=== PATIENT | female | born 1960 | race Caucasian/White ===

== ENCOUNTER 2018-04-19 18:59 | Inpatient (IN) ==
--- NOTE | 2018-04-19 19:36 | Emergency Department Note ---
Disposition Clinical Impression: Dialysis complication Qualifiers: Encounter type: initial encounter Qualified Code(s): T82.9XXA - Unspecified complication of cardiac and vascular prosthetic device, implant and graft, initial encounter Disposition: Admitted As Inpatient Condition: Undetermined Time of Disposition: 21:37 General Adult HPI - General Chief complaint: ED Shortness of Breath/Dyspnea Stated complaint: "retaining fluid, PD dialysis not working" Time Seen by Provider: 04/19/18 19:28 Source: patient Mode of arrival: ambulatory Limitations: no limitations Nursing Notes Reviewed: Yes Vital Signs Reviewed: Yes - History of Present Illness HPI Narrative: 57-year-old female with peritoneal dialysis arrives to the emergency department with inability to have her peritoneal dialysis work. The patient states is been ongoing over the course of the past 5 days. The patient was seen in the office by Dr. Vaughn, her an employee sponsor or advocate and, who recommended she be to the emergency department admitted to the hospital for the next few days. The patient admits to a large amount of abdominal distention and swelling in bilateral upper and lower extremities. She denies any shortness of breath. The patient denies any abdominal pain, fevers, chills. The patient is otherwise resting comfortably. The patient has no signs of obvious infection. She is not tachycardic and not hypotensive and afebrile. Patient denies any other complaints at this time. Pain Scale: 6 - Related Data Home Medications Medication Instructions Recorded Confirmed Albuterol Neb [Proventil Neb] 2.5 mg IH Q4H PRN 11/24/17 04/20/18 Albuterol Sulfate [Albuterol 2 puff IH Q4H PRN 11/24/17 04/20/18 Inhaler] Apixaban [Eliquis] 2.5 mg PO BID 11/24/17 04/20/18 Cetirizine HCl 10 mg PO DAILY 11/24/17 04/20/18 Cholecalciferol (D-3) [Vitamin D] 2,000 unit PO DAILY 11/24/17 04/20/18 Cyanocobalamin (Vitamin B-12) 1,000 mcg PO DAILY 11/24/17 04/20/18 [Vitamin B12] Escitalopram [Lexapro] 20 mg PO DAILY 11/24/17 04/20/18 Ferrous Sulfate 325 mg PO DAILY 11/24/17 04/20/18 Furosemide [Lasix] 20 mg PO DAILY 11/24/17 04/20/18 Gabapentin [Neurontin] 600 mg PO BID 11/24/17 04/20/18 Glimepiride [Amaryl] 2 mg PO QAM 11/24/17 04/20/18 Meclizine HCl [Verticalm] 25 mg PO DAILY PRN 11/24/17 04/20/18 Montelukast [Singulair] 10 mg PO DAILY 11/24/17 04/20/18 Nitroglycerin 0.2 mg TD DAILY 11/24/17 04/20/18 Omeprazole [PriLOSEC] 40 mg PO DAILY 11/24/17 04/20/18 Quetiapine Fumarate [Seroquel] 100 mg PO HS 11/24/17 04/20/18 Calcitriol 0.5 mcg PO DAILY 04/20/18 04/20/18 Magnesium Oxide [Magnesium] 400 mg PO BID 04/20/18 04/20/18 Potassium Chloride [Klor-Con 10] 10 meq PO DAILY 04/20/18 04/20/18 Allergies Allergy/AdvReac Type Severity Reaction Status Date / Time naproxen Allergy Gastrointestinal Verified 04/19/18 19:02 Upset Penicillins [PCN] AdvReac Fever Verified 04/19/18 19:02 All systems ED: reviewed and negative except as stated. Constitutional: Denies: fever, chills, weakness ENT ED: Denies: dysphagia Cardiovascular: Denies: chest pain Respiratory: Denies: dyspnea Gastrointestinal: Denies: abdominal pain, nausea, vomiting Genitourinary: Denies: urgency, dysuria Musculoskeletal: Denies: back pain, neck pain Integumentary: Denies: rash Neurological: Denies: headache Past Medical History - Past Medical History Attestation: Yes The following information was validated with the patient. Source: patient, old records reviewed Medical history: Reports: arthritis, asthma, COPD, coronary artery disease, DVT , diabetes, GERD, hyperlipidemia, hypertension, renal disease Surgical history: Reports: no surgical history Psychiatric history: Reports: anxiety, depression - Social History Smoking Status: Current every day smoker Smokeless Tobacco Status: No Alcohol use: Reports: none Drug use: Reports: none Physical Exam - General Limitations: no limitations General appearance: alert, in no apparent distress - Head Head exam: atraumatic, normocephalic, normal inspection - Eye Eye exam: Present: normal appearance, PERRL, EOMI - ENT ENT exam: normal exam, normal oropharynx, mucous membranes moist - Neck Neck exam: Present: normal inspection, full ROM, trachea midline - Chest Chest inspection: Present: normal inspection, symmetric chest wall rise - Respiratory Respiratory exam: Present: normal lung sounds bilaterally - Cardiovascular Cardiovascular exam: Present: regular rate, normal rhythm, normal heart sounds - Abdominal Exam Abdominal exam: Present: soft, distention, other (dialysis catheter in place.). Absent: tenderness, guarding, rebound, rigidity - Extremities Exam Extremities exam: Present: normal inspection, full ROM. Absent: tenderness, pedal edema - Neurological Exam Neurological exam: Present: alert, oriented X3 - Skin Skin exam: Present: warm Course Vital Signs Temperature 98.6 F 04/19/18 19:02 Pulse Rate 75 04/19/18 19:02 Respiratory Rate 28 04/19/18 19:02 Blood Pressure 125/76 04/19/18 19:02 O2 Sat by Pulse Oximetry 93 04/19/18 19:02 Temperature 97.5 F L 04/20/18 16:20 Pulse Rate 74 04/20/18 15:42 Respiratory Rate 18 04/20/18 16:20 Blood Pressure 137/86 04/20/18 17:05 O2 Sat by Pulse Oximetry 91 04/20/18 15:42 Oxygen Delivery Oxygen Delivery Room Air Medical Decision Making - [facility] Narrative Medical decision making narrative: Patient's workup in the emergency department demonstrates no leukocytosis. CT scan images no acute findings. We are not concerned about SBP at this time as the patient is afebrile, without abdominal pain, without leukocytosis. The patient was noted to be hypokalemic so we did administer 40 mEq by mouth potassium. The patient will be admitted to the hospitalist at this time per request of nephrology. Patient made aware and agrees to plan. No further questions or concerns noted at this time. Patient accepted by Dr. Forte. - Lab Data Lab results reviewed: Yes I reviewed the patient's lab results. Result diagrams: 04/20/18 00:34 04/20/18 00:34 Lab Results 04/19/18 04/19/18 04/19/18 Range/Units 19:35 19:35 22:53 WBC 7.8 (4.3-11.1) K/mcL RBC 3.73 L (3.82-4.97) M/mcL Hgb 9.3 L (11.5-15.4) g/dL Hct 29.7 L (35.3-44.9) % MCV 79.6 L (83.0-100.0) fL MCH 24.9 L (28.0-33.3) pg MCHC 31.3 L (31.6-35.5) g/dL RDW 15.9 H (11.5-14.5) % Plt Count 349 (140-400) K/mcL MPV 9.0 L (9.4-12.4) fL Immature Gran % 0.1 (0-4) % Seg Neutrophils % 73.5 % Lymphocytes % 20.9 % Monocytes % 3.7 % Eosinophils % 1.3 % Basophils % 0.5 % Neutrophils # 5.7 (1.6-8.9) K/mcL Lymphocytes # 1.6 (0.6-4.6) K/mcL Monocytes # 0.3 (0.0-1.3) K/mcL Eosinophils # 0.1 (0.0-0.6) K/mcL Basophils # 0.0 (0.0-0.2) K/mcL Sodium 141 (136-145) mEq/L Potassium 2.7 L (3.5-5.1) mEq/L Chloride 103 (98-107) mEq/L Carbon Dioxide 29 (23-29) mEq/L BUN 23 H (6-20) mg/dL Creatinine 3.45 H (0.60-1.20) mg/dL Est GFR ( Amer) 16 L (> 60) Est GFR (Non-Af Amer) 14 L (> 60) BUN/Creatinine Ratio 7 (6-26) Glucose 113 H (70-105) mg/dL POC Glucose 130 H (70-99) mg/dL Calculated Osmolality 296 (280-300) Calcium 8.0 L (8.6-10.3) mg/dL 18 04/20/18 Range/Units 00:34 00:34 WBC 12.2 H D (4.3-11.1) K/mcL RBC 4.01 (3.82-4.97) M/mcL Hgb 9.8 L (11.5-15.4) g/dL Hct 31.8 L (35.3-44.9) % MCV 79.3 L (83.0-100.0) fL MCH 24.4 L (28.0-33.3) pg MCHC 30.8 L (31.6-35.5) g/dL RDW 16.0 H (11.5-14.5) % Plt Count 379 (140-400) K/mcL MPV 9.1 L (9.4-12.4) fL Immature Gran % 0.4 (0-4) % Seg Neutrophils % 91.2 % Lymphocytes % 6.0 % Monocytes % 2.0 % Eosinophils % 0.2 % Basophils % 0.2 % Neutrophils # 11.1 H (1.6-8.9) K/mcL Lymphocytes # 0.7 (0.6-4.6) K/mcL Monocytes # 0.2 (0.0-1.3) K/mcL Eosinophils # 0.0 (0.0-0.6) K/mcL Basophils # 0.0 (0.0-0.2) K/mcL Sodium 141 (136-145) mEq/L Potassium 3.0 L (3.5-5.1) mEq/L Chloride 102 (98-107) mEq/L Carbon Dioxide 28 (23-29) mEq/L BUN 25 H (6-20) mg/dL Creatinine 3.43 H (0.60-1.20) mg/dL Est GFR ( Amer) 17 L (> 60) Est GFR (Non-Af Amer) 14 L (> 60) BUN/Creatinine Ratio 7 (6-26) Glucose 136 H (70-105) mg/dL POC Glucose (70-99) mg/dL Calculated Osmolality 298 (280-300) Calcium 8.1 L (8.6-10.3) mg/dL - Radiology Data Radiology results reviewed: Yes I reviewed the patient's radiology results. Abdomen/Pelvis CT 04/19/18 19:40 IMPRESSION: 1. Peritoneal dialysis catheter in place within the anterior lower abdomen. There is a small amount of intra-abdominal and pelvic ascites, which is expected with peritoneal dialysis. No organized fluid collections are identified within the limits of this unenhanced study. 2. No acute process in the abdomen or pelvis. 3. Trace pleural fluid at the lung bases. D/ / 04/19/2018 21:11:31 Ellen Baig / ember Interpreting Provider: Ellen Baig - EKG Data EKG #1 EKG attestation: Yes I reviewed and interpreted this EKG. EKG results narrative: Heart rate 72 beats for minute. No ST elevation or ST depression noted. No acute changes noted.
[2018-04-19 19:59] LABS: Basophils % 0.5 %; Eosinophils # 0.1 K/mcL (0.0-0.6); Eosinophils % 1.3 %; Hematocrit 29.7 % (35.3-44.9); Hemoglobin 9.3 g/dL (11.5-15.4); Immature Granulocytes % 0.1 % (0-4); Lymphocytes # 1.6 K/mcL (0.6-4.6); Lymphocytes % 20.9 %; Mean Corpuscular HGB Conc 31.3 g/dL (31.6-35.5); Mean Corpuscular Hemoglobin 24.9 pg (28.0-33.3); Mean Corpuscular Volume 79.6 fL (83.0-100.0); Monocytes # 0.3 K/mcL (0.0-1.3); Monocytes % 3.7 %; Neutrophils # 5.7 K/mcL (1.6-8.9); Platelet Count 349 K/mcL (140-400); Red Blood Count 3.73 M/mcL (3.82-4.97); Red Cell Distribution Width 15.9 % (11.5-14.5); Segmented Neutrophils % 73.5 %
--- NOTE | 2018-04-19 20:13 | Emergency Department Note ---
Disposition Clinical Impression: Dialysis complication Disposition: Admitted As Inpatient Condition: Undetermined General Adult HPI - General Chief complaint: ED Shortness of Breath/Dyspnea Stated complaint: "retaining fluid, PD dialysis not working" Time Seen by Provider: 04/19/18 19:28 Source: patient Mode of arrival: ambulatory Limitations: no limitations - History of Present Illness Pain Scale: 7 - Related Data Home Medications Medication Instructions Recorded Confirmed Albuterol Neb [Proventil Neb] 2.5 mg IH Q4H PRN 11/24/17 11/24/17 Albuterol Sulfate [Albuterol 2 puff IH Q4H PRN 11/24/17 11/24/17 Inhaler] Apixaban [Eliquis] 2.5 mg PO BID 11/24/17 11/24/17 Cetirizine HCl 10 mg PO DAILY 11/24/17 11/24/17 Cholecalciferol (D-3) [Vitamin D] 2,000 unit PO DAILY 11/24/17 11/24/17 Cyanocobalamin (Vitamin B-12) 1,000 mcg PO DAILY 11/24/17 11/24/17 [Vitamin B12] Escitalopram [Lexapro] 20 mg PO DAILY 11/24/17 11/24/17 Ferrous Sulfate 325 mg PO DAILY 11/24/17 11/24/17 Furosemide [Lasix] 20 mg PO DAILY 11/24/17 11/24/17 Gabapentin [Neurontin] 600 mg PO BID 11/24/17 11/24/17 Glimepiride [Amaryl] 2 mg PO QAM 11/24/17 11/24/17 Meclizine HCl [Verticalm] 25 mg PO DAILY PRN 11/24/17 11/24/17 Montelukast [Singulair] 10 mg PO DAILY 11/24/17 11/24/17 Nitroglycerin 0.2 mg TD DAILY 11/24/17 11/24/17 Omeprazole [PriLOSEC] 40 mg PO DAILY 11/24/17 11/24/17 Potassium Chloride [K-Tab ER] 20 meq PO DAILY 11/24/17 11/24/17 Quetiapine Fumarate [Seroquel] 100 mg PO HS 11/24/17 11/24/17 Previous Rx's Medication Instructions Recorded OxyCODONE/APAP 5/325 [Percocet 1 each PO Q6HR PRN 7 Days #7 tablet 11/24/17 5/325 MG] Allergies Allergy/AdvReac Type Severity Reaction Status Date / Time naproxen Allergy Gastrointestinal Verified 04/19/18 19:02 Upset Penicillins [PCN] AdvReac Fever Verified 04/19/18 19:02 Constitutional: Denies: fever, chills, weakness ENT ED: Denies: dysphagia Cardiovascular: Denies: chest pain Respiratory: Denies: dyspnea Gastrointestinal: Denies: abdominal pain, nausea, vomiting Genitourinary: Denies: urgency, dysuria Musculoskeletal: Denies: back pain, neck pain Integumentary: Denies: rash Neurological: Denies: headache Past Medical History - Past Medical History Medical history: Reports: arthritis, asthma, COPD, coronary artery disease, DVT , diabetes, GERD, hyperlipidemia, hypertension, renal disease Surgical history: Reports: no surgical history Psychiatric history: Reports: anxiety, depression - Social History Smoking Status: Current every day smoker Smokeless Tobacco Status: No Alcohol use: Reports: none Drug use: Reports: none Physical Exam - General Limitations: no limitations General appearance: alert, in no apparent distress Course Vital Signs Temperature 98.6 F 04/19/18 19:02 Pulse Rate 75 04/19/18 19:02 Respiratory Rate 28 04/19/18 19:02 Blood Pressure 125/76 04/19/18 19:02 O2 Sat by Pulse Oximetry 93 04/19/18 19:02 Temperature 98.6 F 04/19/18 19:12 Pulse Rate 72 04/19/18 19:41 Respiratory Rate 12 04/19/18 19:41 Blood Pressure 105/59 04/19/18 19:41 O2 Sat by Pulse Oximetry 93 04/19/18 19:12 Oxygen Delivery Oxygen Delivery Room Air Medical Decision Making - Lab Data Result diagrams: 04/19/18 19:35 04/19/18 19:35 Lab Results 04/19/18 04/19/18 Range/Units 19:35 19:35 WBC 7.8 (4.3-11.1) K/mcL RBC 3.73 L (3.82-4.97) M/mcL Hgb 9.3 L (11.5-15.4) g/dL Hct 29.7 L (35.3-44.9) % MCV 79.6 L (83.0-100.0) fL MCH 24.9 L (28.0-33.3) pg MCHC 31.3 L (31.6-35.5) g/dL RDW 15.9 H (11.5-14.5) % Plt Count 349 (140-400) K/mcL MPV 9.0 L (9.4-12.4) fL Immature Gran % 0.1 (0-4) % Seg Neutrophils % 73.5 % Lymphocytes % 20.9 % Monocytes % 3.7 % Eosinophils % 1.3 % Basophils % 0.5 % Neutrophils # 5.7 (1.6-8.9) K/mcL Lymphocytes # 1.6 (0.6-4.6) K/mcL Monocytes # 0.3 (0.0-1.3) K/mcL Eosinophils # 0.1 (0.0-0.6) K/mcL Basophils # 0.0 (0.0-0.2) K/mcL Sodium 141 (136-145) mEq/L Potassium 2.7 L (3.5-5.1) mEq/L Chloride 103 (98-107) mEq/L Carbon Dioxide 29 (23-29) mEq/L BUN 23 H (6-20) mg/dL Creatinine 3.45 H (0.60-1.20) mg/dL Est GFR ( Amer) 16 L (> 60) Est GFR (Non-Af Amer) 14 L (> 60) BUN/Creatinine Ratio 7 (6-26) Glucose 113 H (70-105) mg/dL Calculated Osmolality 296 (280-300) Calcium 8.0 L (8.6-10.3) mg/dL Attestation Statement - Attestation Attestation: I examined this patient and my medical decision-making was reviewed with the Resident Physician. I agree with the documented findings, disposition and treatment plan as described except to the extent set forth below. Patient presents to the ED with a chief complaint of trouble with her dialysis catheter. Patient states she has not had a full dialysis since last Monday. Her peritoneal dialysis catheter will not flush or draw. On examination she is in no acute distress with stable vitals. Plan. Basic labs and imaging. Patient is mildly hypokalemic. Patient will be admitted for further troubleshooting of her peritoneal catheter.
[2018-04-19 20:15] LABS: Potassium 2.7 mEq/L (3.5-5.1)
[2018-04-19] MEDS ORDERED: *HR* OxyCODONE/APAP 5/325 TABLET PO PRN (22:33)
[2018-04-19] MEDS ORDERED: Albuterol 2.5 MG/3 ML NEBULIZER IH PRN (22:33)
[2018-04-19] MEDS ORDERED: Dextrose Gel 15 GM/37.5 ML TUBE PO PRN ×2 (22:39)
[2018-04-19] MEDS ORDERED: Ipratropium/Albuterol Neb 3 ML IH STA (23:14)
[2018-04-19] MEDS ORDERED: Furosemide 40 MG/4 ML VIAL IVP ONE (23:16)
[2018-04-19] MEDS ORDERED: Ipratropium/Albuterol Neb 3 ML ONE (23:21)
--- NOTE | 2018-04-19 23:27 | Internal Med History&Physical ---
Date of Encounter: 04/20/18 Time of Encounter: 23:27 Internal Medicine - H&P: HPI Chief complaint: nonfunctional dialysis access Admitted From: Home Plans for Post Hospital Care: Home History of present illness: Ms. 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 She presents today on referral from the nephrology clinic were she went with complaints of a non-functional peritoneal access for the past 4-5 days and has been unable to undergo appropriate renal replacement therapy. With this she has been accumulating more fluid, now complaining of increasing abdominal distension and shortness of breath. On arrival to the ER, she was clinically and hemodynamically stable, noted to have a serum potassium of 2.7 and was given 40mEq supplementation. She is admitted for observation pending re-evaluation by nephrology to obtain alternate access. On my assessment upon arrival to her room, she was notably uncomfortable due to her abdominal distension and shortness of breath. She was unable to lay supine. She had audible wheezes and an oral temperature was checked in front of me which was 103F; repeat was 101F. She denied abdominal pain however. She admits to still making urine but denies dysuria. Past Med Surg Social Fam HX - Past Medical History Medical history: arthritis, asthma, COPD, coronary artery disease, DVT, diabetes , GERD, hyperlipidemia, hypertension, renal disease Additional medical history: sleep apnea, Psychiatric history: anxiety, depression - Past Surgical History Surgical History: no surgical history Additional surgical history: Dialysis Catheter - Social History Smoking Status: Current every day smoker Smokeless Tobacco Status: No Alcohol use: none Drug use: none Internal Medicine - H&P: Meds Albuterol Neb [Proventil Neb] 2.5 mg IH Q4H PRN 11/24/17 [History] Albuterol Sulfate [Albuterol Inhaler] 2 puff IH Q4H PRN 11/24/17 [History] Apixaban [Eliquis] 2.5 mg PO BID 11/24/17 [History] Cetirizine HCl 10 mg PO DAILY 11/24/17 [History] Cholecalciferol (D-3) [Vitamin D] 2,000 unit PO DAILY 11/24/17 [History] Cyanocobalamin (Vitamin B-12) [Vitamin B12] 1,000 mcg PO DAILY 11/24/17 [History ] Escitalopram [Lexapro] 20 mg PO DAILY 11/24/17 [History] Ferrous Sulfate 325 mg PO DAILY 11/24/17 [History] Furosemide [Lasix] 20 mg PO DAILY 11/24/17 [History] Gabapentin [Neurontin] 600 mg PO BID 11/24/17 [History] Glimepiride [Amaryl] 2 mg PO QAM 11/24/17 [History] Meclizine HCl [Verticalm] 25 mg PO DAILY PRN 11/24/17 [History] Montelukast [Singulair] 10 mg PO DAILY 11/24/17 [History] Nitroglycerin 0.2 mg TD DAILY 11/24/17 [History] Omeprazole [PriLOSEC] 40 mg PO DAILY 11/24/17 [History] OxyCODONE/APAP 5/325 [Percocet 5/325 MG] 1 each PO Q6HR PRN 7 Days #7 tablet [Rx] Potassium Chloride [K-Tab ER] 20 meq PO DAILY 11/24/17 [History] Quetiapine Fumarate [Seroquel] 100 mg PO HS 11/24/17 [History] 3 Allergy/AdvReac Type Severity Reaction Status Date / Time naproxen Allergy Gastrointestinal Verified 04/19/18 19:02 Upset Penicillins [PCN] AdvReac Fever Verified 04/19/18 19:02 All Systems PM: A 10-system review of systems was performed and is negative for pertinent findings except as documented above in the HPI. - Constitutional Vitals: Temp Pulse Resp BP Pulse Ox 98.6 F 72 22 125/82 93 04/19/18 19:12 04/19/18 19:41 04/19/18 22:24 04/19/18 22:24 04/19/18 19:12 Exam: Vitals: Reviewed General: Obese white female in standard Clarke's position with notable respiratory discomfort and audible wheezes. Skin: Warm and supple. HEENT: Moist mucous membranes. No conjunctivae pallor. Neck: No lymphadenopathy. No JVD. Chest: Diminished thoracic expansion with diffuse wheezes, rhonchi and rales. Heart: Normal S1 & S2; rhythmic. Abdomen: Very distended but not tense, no focal areas of tenderness or peritoneal reaction elicited. Extremities: 2+ pitting edema of lower extremities. Neurological: Awake, alert and oriented to person, place and time. No focal deficits. Psych: Affect appropriate. Internal Med - H&P Results - Labs CBC & Chem 7: 04/19/18 19:35 04/19/18 19:35 - Assessment and plan (1) Fever Current Visit: Yes Status: Acute Assessment and plan: Unclear etiology and only started upon admission. The presence of large volume ascites as noted on her physical exam with a dysfunctional peritoneal diaylsis catheter should raise the suspicion for secondary bacterial peritonitis. We will obtain 2 sets of blood cultures. 1 dose of 1 g vancomycin for possible catheter-related contaminating gram positive organisms and 2 g of cefepime for gram negative enterics. These doses should be sufficient for the next coming days given her ESRD condition until she is dialyzed. Obtain a UA and chest x-ray. Qualifiers: Fever type: unspecified Qualified Code(s): R50.9 - Fever, unspecified (2) Peritoneal dialysis catheter dysfunction Current Visit: Yes Status: Acute Assessment and plan: Unclear reason for dysfunction. No overt mechanical anomalies noted on CT scan. May be related to a clotted access. Nephrology consultation placed and will be seen for an alternative access in the morning. No emergent indication for dialysis at this time. Qualifiers: Encounter type: initial encounter Qualified Code(s): T85.611A - Breakdown ( mechanical) of intraperitoneal dialysis catheter, initial encounter (3) ESRD (end stage renal disease) on dialysis Current Visit: Yes Status: Chronic Assessment and plan: As above. (4) VTE (venous thromboembolism) Current Visit: Yes Status: Acute Assessment and plan: Will continue apixaban twice daily. (5) CAD (coronary artery disease) Current Visit: Yes Status: Chronic Assessment and plan: Continue nitroglycerin patch daily. Being followed as an outpatient. Qualifiers: Coronary Disease-Associated Artery/Lesion type: ruby artery [place] vs. transplanted heart: ruby heart Associated angina: with stable angina Qualified Code(s): I25.118 - Atherosclerotic heart disease of ruby coronary artery with other forms of angina pectoris (6) DEE (obstructive sleep apnea) Current Visit: Yes Status: Acute Assessment and plan: Start CPAP qhs. (7) COPD (chronic obstructive pulmonary disease) Current Visit: Yes Status: Chronic Assessment and plan: Will place on duonebs q4hrs for acute exacerbation. Supplemental oxygen as needed. Qualifiers: COPD type: COPD with acute exacerbation Qualified Code(s): J44.1 - Chronic obstructive pulmonary disease with (acute) exacerbation (8) Anemia in chronic kidney disease Current Visit: Yes Status: Chronic Assessment and plan: Stable. Place on ferrous sulfate supplementation. Qualifiers: Chronic kidney disease stage: on chronic dialysis Qualified Code(s): N18.6 - End stage renal disease; D63.1 - Anemia in chronic kidney disease; Z99.2 - Dependence on renal dialysis (9) Tobacco dependence Current Visit: Yes Status: Acute Assessment and plan: Continues to smoke despite her comorbidities. 5 minutes were spent counseling. (10) Diabetes Current Visit: Yes Status: Acute Assessment and plan: Will hold oral medications and place on insulin sliding scale for now. Qualifiers: Diabetes mellitus type: type 2 Diabetes mellitus exterminator helper insulin use: without exterminator helper use Diabetes mellitus complication status: with unspecified complications Qualified Code(s): E11.8 - Type 2 diabetes mellitus with unspecified complications (11) Obesity Current Visit: Yes Status: Acute Assessment and plan: Will benefit from capsule filling machine operator consultation. Current weight is likely exacerbated by fluid retention as well and is not her dry weight. Qualifiers: Obesity classification: adult class 3 (BMI >= 40) Serious obesity comorbidity presence: with serious comorbidity Body mass index: BMI 45.0-49.9 Qualified Code(s): E66.01 - Morbid (severe) obesity due to excess calories; Z68.42 - Body mass index (BMI) 45.0-49.9, adult (12) Hypokalemia Current Visit: Yes Status: Acute Assessment and plan: Was given 1 dose of KCL 40mEq. Will recheck in the morning. Unlikely to need more given her ESRD state. (13) Shortness of breath Current Visit: Yes Status: Acute Assessment and plan: Likely multifactorial having a fluid overload state from non-dialysis leading to pulmonary edema, exacerbation of COPD with overlap of DEE. -Will administer 1 dose of furosemide 40mg IVP now and continue BID to reduce her fluid until she is able to undergo renal replacement therapy. -Albuterol/ipratropium q4hrs x 24hrs. Avoiding steroids for now due to possible infection and to avoid fluid retention. -Close respiratory watch. - Time Spent With Patient Total time spent is greater than 50% in coordination of care (as documented) at patient's floor/unit and/or counseling patient: Greater than 35 minutes
[2018-04-19] MEDS: Ipratropium/Albuterol Neb 3 ML IH SCH (23:55)
[2018-04-20] MEDS ORDERED: Cefepime HCl 2,000 MG in 0.9 % Sodium Chloride Mini Bag 100 ML IVPB ONE (00:21)
[2018-04-20 01:12] LABS: Basophils % 0.2 %; Eosinophils % 0.2 %; Hematocrit 31.8 % (35.3-44.9); Hemoglobin 9.8 g/dL (11.5-15.4); Immature Granulocytes % 0.4 % (0-4); Lymphocytes # 0.7 K/mcL (0.6-4.6); Mean Corpuscular HGB Conc 30.8 g/dL (31.6-35.5); Mean Corpuscular Hemoglobin 24.4 pg (28.0-33.3); Mean Corpuscular Volume 79.3 fL (83.0-100.0); Mean Platelet Volume 9.1 fL (9.4-12.4); Monocytes # 0.2 K/mcL (0.0-1.3); Neutrophils # 11.1 K/mcL (1.6-8.9); Platelet Count 379 K/mcL (140-400); Red Blood Count 4.01 M/mcL (3.82-4.97); Segmented Neutrophils % 91.2 %
[2018-04-20 01:31] LABS: Calcium 8.1 mg/dL (8.6-10.3)
[2018-04-20] MEDS: Ipratropium/Albuterol Neb 3 ML IH SCH ×4 (04:07→16:40)
[2018-04-20 04:32] LABS: INR 1.3; Prothrombin Time 14.1 Seconds (9.4-12.1)
[2018-04-20] MEDS: Insulin LISPRO 300 UNITS/3 ML VIAL SQ SCH ×5 (06:43→18:18)
[2018-04-20] MEDS ORDERED: D5% in Water 1,000 ML IVC PRN (07:29)
[2018-04-20] MEDS ORDERED: Dextrose Gel 15 GM/37.5 ML TUBE PO PRN ×2 (07:29)
[2018-04-20] MEDS ORDERED: *HR* Dextrose 50 % in Water (Syg) 50 ML SYRINGE IVP PRN (07:29)
--- NOTE | 2018-04-20 08:28 | Electrocardiograph Report ---
[place] [id number] Test Date: 2018-04-19 Pat Name: Nallely Ramirez Department: Room: 2A25 Gender: F Candy Dipper Hand: : 1960 Requested By: Misha Forte Order Number: [id number] Reading MD: Sebastien Sen Measurements Intervals [place] Rate: 72 P: 56 MS: 164 QRS: -25 QRSD: 91 T: -52 QT: 527 QTc: 577 Interpretive Statements Sinus rhythm with PVCs Borderline left axis deviation Nonspecific ST-T changes Prolonged QT interval Electronically Signed On 04-20-2018 8:27:09 EDT by Sebastien Sen
--- NOTE | 2018-04-20 08:54 | Internal Med Progress Note ---
Hospitalist Progress Note - Encounter Date of Encounter: 04/20/18 Time of Encounter: 08:40 - Exam Vitals: Temp Pulse Resp BP Pulse Ox 99.7 F H 76 21 100/64 97 04/20/18 07:21 04/20/18 07:21 04/20/18 07:37 04/20/18 07:21 04/20/18 07:37 Exam: Vitals: Reviewed General: Obese white female in standard Clarke's position with notable respiratory discomfort and audible wheezes. Skin: Warm and supple. HEENT: Moist mucous membranes. No conjunctivae pallor. Neck: No lymphadenopathy. No JVD. Chest: Diminished thoracic expansion with diffuse wheezes, rhonchi and rales. Heart: Normal S1 & S2; rhythmic. Abdomen: Very distended but not tense, no focal areas of tenderness or peritoneal reaction elicited. Extremities: 2+ pitting edema of lower extremities. Neurological: Awake, alert and oriented to person, place and time. No focal deficits. Psych: Affect appropriate. - Assessment and Plan (1) Sepsis Current Visit: Yes Status: Acute Assessment and Plan: Sepsis likely secondary to secondary bacterial peritonitis. Patient has mal functioning peritoneal dialysis access, and has fever and leukocytosis. Will broaden antibiotic coverage to cetriaxone and metronidazole. Follow up blood cultures. CT scan shows small amount of intraabdominal ascites with no fluid collections (2) Peritonitis Current Visit: Yes Status: Acute Assessment and Plan: Secondary bacterial peritonitis. See #1 (3) Peritoneal dialysis catheter dysfunction Current Visit: Yes Status: Acute Assessment and Plan: Unclear reason for dysfunction. No overt mechanical anomalies noted on CT scan. May be related to a clotted access. Nephrology consultation placed and will be seen for an alternative access in the morning. No emergent indication for dialysis at this time. (4) ESRD (end stage renal disease) on dialysis Current Visit: Yes Status: Chronic Assessment and Plan: As above. (5) VTE (venous thromboembolism) Current Visit: Yes Status: Acute Assessment and Plan: Will continue apixaban twice daily. (6) CAD (coronary artery disease) Current Visit: Yes Status: Chronic Assessment and Plan: Continue nitroglycerin patch daily. Being followed as an outpatient. (7) DEE (obstructive sleep apnea) Current Visit: Yes Status: Acute Assessment and Plan: Start CPAP qhs. (8) COPD (chronic obstructive pulmonary disease) Current Visit: Yes Status: Chronic Assessment and Plan: Will place on duonebs q4hrs for acute exacerbation. Supplemental oxygen as needed. (9) Anemia in chronic kidney disease Current Visit: Yes Status: Chronic Assessment and Plan: Stable. Place on ferrous sulfate supplementation. (10) Tobacco dependence Current Visit: Yes Status: Acute Assessment and Plan: Continues to smoke despite her comorbidities. 5 minutes were spent counseling. (11) Diabetes Current Visit: Yes Status: Acute Assessment and Plan: Will hold oral medications and place on insulin sliding scale for now. (12) Obesity Current Visit: Yes Status: Acute Assessment and Plan: Will benefit from call center receptionist consultation. Current weight is likely exacerbated by fluid retention as well and is not her dry weight. (13) Hypokalemia Current Visit: Yes Status: Acute Assessment and Plan: Was given 1 dose of KCL 40mEq. Will recheck in the morning. Unlikely to need more given her ESRD state. (14) Shortness of breath Current Visit: Yes Status: Acute Assessment and Plan: Likely multifactorial having a fluid overload state from non-dialysis leading to pulmonary edema, exacerbation of COPD with overlap of DEE. -Will administer 1 dose of furosemide 40mg IVP now and continue BID to reduce her fluid until she is able to undergo renal replacement therapy. -Albuterol/ipratropium q4hrs x 24hrs. Avoiding steroids for now due to possible infection and to avoid fluid retention. -Close respiratory watch. DVT Prophylaxis: on apixaban - Time Spent with Patient Total time spent is greater than 50% in coordination of care (as documented) at patient's floor/unit and/or counseling patient: Internal Medicine: Result - Labs CBC & Chem 7: 04/20/18 00:34 04/20/18 00:34 - ABG Interpretation ABG results: PT/INR, D-dimer PT 14.1 Seconds (9.4-12.1) H 04/20/18 03:57 Consult Discharge Plan - Plan Referrals: NONE,PCP [Primary Care Provider] - (3) Peritoneal dialysis catheter dysfunction Qualifiers: Encounter type: initial encounter Qualified Code(s): T85.611A - Breakdown ( mechanical) of intraperitoneal dialysis catheter, initial encounter (6) CAD (coronary artery disease) Qualifiers: Coronary Disease-Associated Artery/Lesion type: [place] artery [place] vs. transplanted heart: [place] heart Associated angina: with stable angina Qualified Code(s): I25.118 - Atherosclerotic heart disease of [place] coronary artery with other forms of angina pectoris (8) COPD (chronic obstructive pulmonary disease) Qualifiers: COPD type: COPD with acute exacerbation Qualified Code(s): J44.1 - Chronic obstructive pulmonary disease with (acute) exacerbation (9) Anemia in chronic kidney disease Qualifiers: Chronic kidney disease stage: on chronic dialysis Qualified Code(s): N18.6 - End stage renal disease; D63.1 - Anemia in chronic kidney disease; Z99.2 - Dependence on renal dialysis (11) Diabetes Qualifiers: Diabetes mellitus type: type 2 Diabetes mellitus cad developer insulin use: without jail use Diabetes mellitus complication status: with unspecified complications Qualified Code(s): E11.8 - Type 2 diabetes mellitus with unspecified complications (12) Obesity Qualifiers: Obesity classification: adult class 3 (BMI >= 40) Serious obesity comorbidity presence: with serious comorbidity Body mass index: BMI 45.0-49.9
[2018-04-20] MEDS ORDERED: Furosemide 40 MG/4 ML VIAL IVP SCH (09:00)
[2018-04-20] MEDS ORDERED: Furosemide 20 MG TABLET PO SCH (09:00)
[2018-04-20] MEDS ORDERED: Albuterol 2.5 MG/3 ML NEBULIZER IH PRN (09:31)
[2018-04-20] MEDS: Furosemide 40 MG/4 ML VIAL IVP SCH ×2 (10:24→18:18)
[2018-04-20] MEDS: cefTRIAXone 2,000 MG in Water for inj. (sterile) 20 ML 20 ML IVP SCH (10:24)
[2018-04-20] MEDS: Gabapentin 300 MG CAPSULE PO SCH ×3 (10:25→20:29)
[2018-04-20] MEDS: Loratadine 10 MG TABLET PO SCH (10:26)
[2018-04-20] MEDS: Cyanocobalamin (B-12) 1,000 MCG TABLET PO SCH (10:26)
[2018-04-20] MEDS: Apixaban 2.5 MG TABLET PO SCH ×2 (10:26→20:28)
[2018-04-20] MEDS: Cholecalciferol (D-3) 1,000 UNIT TABLET PO SCH (10:26)
[2018-04-20] MEDS: Nitroglycerin 0.2 MG PATCH.TD24 TD SCH (10:26)
[2018-04-20] MEDS: MetroNIDAZOLE 500 MG/100 ML 500 MG/100 ML BAG IVPB SCH ×2 (10:34→18:18)
[2018-04-20] MEDS ORDERED: *HR* Alteplase (Cathflo) 2 MG VIAL IVP ONE (12:00)
--- NOTE | 2018-04-20 13:01 | Nephrology Consult Note ---
Date of Encounter: 04/20/18 Time of Encounter: 12:00 Assessment and Plan (1) Peritoneal dialysis catheter dysfunction Status: Acute Will use tPA to brakup fibrin clot and if not effective, will consult surgery for PD catheter replacement Qualifiers: Encounter type: initial encounter Qualified Code(s): T85.611A - Breakdown ( mechanical) of intraperitoneal dialysis catheter, initial encounter (2) ESRD (end stage renal disease) on dialysis Status: Chronic Will infuse tPA to dwell for at least an hour to rule out fibrin clot CT result noted Will arrange for temp IJ catheter in case PD catheter fails to improve in fxn after tPA Plan to dialyze via either HD or PD today for fluid removal (3) Volume overload Status: Acute should improve with dialysis Qualifiers: Hypervolemia type: other Qualified Code(s): E87.79 - Other fluid overload (4) Hypokalemia Status: Resolved Will replete gently History of Present Illness - Reason for Consult Consult date: 04/20/18 end stage renal disease Requesting physician: Juan R Cheung - History of Present Illness 57 y o female with PMH of COPD/asthma, [place] on cPAP, fibrillary GN with ESRD on HD admitted after being sent from outpatient PD clinic by my associate, Dr Vaughn for malfunctional PD catheter. Pt reports last HD was on monday and she was not able to drain. She did not notify nephrology service untill appt yesterday at which time an attempt at PD session also failed with 1200cc dianeal infused but unable to drain. Pt seen and examined feeling more SOB than usual with distended abdomen and LE edema. Of note, pt takes eliquis for recurrent DVTs. Past Med Surg Social Fam HX - Past Medical History Medical history: arthritis, asthma, COPD, coronary artery disease, DVT, diabetes , GERD, hyperlipidemia, hypertension, renal disease Additional medical history: sleep apnea, Psychiatric history: anxiety, depression - Past Surgical History Surgical History: no surgical history Additional surgical history: Dialysis Catheter - Social History Smoking Status: Current every day smoker Smokeless Tobacco Status: No Alcohol use: none Drug use: none Medications and Allergies Albuterol Neb [Proventil Neb] 2.5 mg IH Q4H PRN 11/24/17 [History] Albuterol Sulfate [Albuterol Inhaler] 2 puff IH Q4H PRN 11/24/17 [History] Apixaban [Eliquis] 2.5 mg PO BID 11/24/17 [History] Cetirizine HCl 10 mg PO DAILY 11/24/17 [History] Cholecalciferol (D-3) [Vitamin D] 2,000 unit PO DAILY 11/24/17 [History] Cyanocobalamin (Vitamin B-12) [Vitamin B12] 1,000 mcg PO DAILY 11/24/17 [History ] Escitalopram [Lexapro] 20 mg PO DAILY 11/24/17 [History] Ferrous Sulfate 325 mg PO DAILY 11/24/17 [History] Furosemide [Lasix] 20 mg PO DAILY 11/24/17 [History] Gabapentin [Neurontin] 600 mg PO BID 11/24/17 [History] Glimepiride [Amaryl] 2 mg PO QAM 11/24/17 [History] Meclizine HCl [Verticalm] 25 mg PO DAILY PRN 11/24/17 [History] Montelukast [Singulair] 10 mg PO DAILY 11/24/17 [History] Nitroglycerin 0.2 mg TD DAILY 11/24/17 [History] Omeprazole [PriLOSEC] 40 mg PO DAILY 11/24/17 [History] Quetiapine Fumarate [Seroquel] 100 mg PO HS 11/24/17 [History] Calcitriol 0.5 mcg PO DAILY 04/20/18 [History] Magnesium Oxide [Magnesium] 400 mg PO BID 04/20/18 [History] Potassium Chloride [Klor-Con 10] 10 meq PO DAILY 04/20/18 [History] 3 Allergy/AdvReac Type Severity Reaction Status Date / Time naproxen Allergy Gastrointestinal Verified 04/19/18 19:02 Upset Penicillins [PCN] AdvReac Fever Verified 04/19/18 19:02 Review of Systems All Systems: reviewed and no additional remarkable complaints except as stated ( 10 systems reviewed and noted in HPI) Exam - Vital Signs Vital signs: Initial Vital Signs Temp Pulse Resp BP Pulse Ox 98.6 F 75 28 125/76 93 04/19/18 19:02 04/19/18 19:02 04/19/18 19:02 04/19/18 19:02 04/19/18 19:02 Vital Signs - Last 8 Hours Temp Pulse Resp BP Pulse Ox 04/20/18 11:30 98.4 F 74 16 118/62 93 04/20/18 07:37 21 97 04/20/18 07:21 99.7 F H 76 18 100/64 96 04/20/18 05:40 101.8 F H 78 17 106/63 97 Intake and Output 04/19/18 04/20/18 04/20/18 23:59 07:59 15:59 Intake Total 0 / 0 Output Total 300 / 300 Balance -300 / -300 0 / 0 Intake: Oral 0 / 0 Output: Urine 300 / 300 Other: Meal NPO Percent of Meal Consumed 0% Stool Size Small Stool Consistency loose Stool Characteristics Mucoid Stool Color Brown # Voids 1 Blood Glucose* 142 158 - General Appearance General appearance: well-developed, well-nourished EENT: ATNC, mucous membranes moist Neck: no JVD, supple Respiratory: wheezing Cardiology: edema, normal S1, normal S2 Gastrointestinal: no tenderness, no guarding, obese, distended Additional Comments: PD catheter site without erythema or drainage Integumentary: warm and dry Neurologic: no focal deficit Musculoskeletal: no deformities Psychiatric: mood/affect appropriate Results - Lab Results 04/26/18 06:07 04/26/18 06:07 Most recent lab results Calcium 8.1 mg/dL (8.6-10.3) L 04/20/18 00:34 Consult Discharge Plan - Plan Instructions: Hemodialysis (DC), Dialysis Diet (DC), End-Stage Kidney Disease ( DC) Additional Instructions: #1 may shower, no tub bath for 2 weeks #2 wash incisions with soap and water and pat dry daily #3 no lifting, pushing, pulling more than 20 pounds for the next 2 weeks #4 no driving until off narcotics for 24 hours and able to safely react in the car #5 may climb stairs Referrals: Andrea Sy DO [Partnered Physician] - 05/08/18 9:10 am (surgery follow-up) Jose Alejandro Mcnulty MD [Non-Partnered Physician] - 05/02/18 11:00 am (Please follow up as schedule...) NONE,PCP [Primary Care Provider] -
[2018-04-20 14:55] LABS: Hepatitis B Surface Antigen Nonreactive (Nonreactive)
[2018-04-20] MEDS ORDERED: *HR* Heparin 5,000 UNIT/ML VIAL ONE (14:58)
[2018-04-20] MEDS ORDERED: *HR* Heparin 10,000 UNIT/10 ML VIAL IV PRN (15:32)
[2018-04-20] MEDS ORDERED: 0.9 % Sodium Chloride 250 ML IVC PRN (15:32)
[2018-04-20] MEDS ORDERED: 0.9 % Sodium Chloride 1,000 ML ONE (15:37)
[2018-04-20] MEDS ORDERED: 0.9 % Sodium Chloride 1,000 ML PRIME SCH (15:45)
[2018-04-21] MEDS: Ipratropium/Albuterol Neb 3 ML IH SCH ×5 (00:20→22:35)
[2018-04-21] MEDS: MetroNIDAZOLE 500 MG/100 ML 500 MG/100 ML BAG IVPB SCH ×3 (00:23→18:34)
[2018-04-21] MEDS ORDERED: Nitroglycerin 0.4 MG TAB.SUBL SL ONE ×2 (05:55)
[2018-04-21] MEDS: Insulin LISPRO 300 UNITS/3 ML VIAL SQ SCH ×4 (06:37→18:35)
[2018-04-21 07:16] LABS: Hematocrit 26.6 % (35.3-44.9); Hemoglobin 8.3 g/dL (11.5-15.4); Immature Platelets 1.8 % (1.1-6.1); Mean Corpuscular HGB Conc 31.2 g/dL (31.6-35.5); Mean Corpuscular Hemoglobin 25.2 pg (28.0-33.3); Mean Corpuscular Volume 80.9 fL (83.0-100.0); Mean Platelet Volume 9.1 fL (9.4-12.4); Red Blood Count 3.29 M/mcL (3.82-4.97)
[2018-04-21 07:39] LABS: Calcium 7.9 mg/dL (8.6-10.3); Potassium 3.6 mEq/L (3.5-5.1)
[2018-04-21] MEDS ORDERED: *HR* Heparin 10,000 UNIT/10 ML VIAL IV PRN (07:54)
[2018-04-21] MEDS ORDERED: 0.9 % Sodium Chloride 250 ML IVC PRN (07:54)
--- NOTE | 2018-04-21 07:55 | Internal Med Progress Note ---
Hospitalist Progress Note - Encounter Date of Encounter: 04/21/18 Time of Encounter: 07:50 - Subjective Interval History: No acute events overnight - Exam Vitals: Temp Pulse Resp BP Pulse Ox 98.3 F 75 18 119/70 85 04/21/18 05:28 04/21/18 05:28 04/21/18 05:28 04/21/18 05:28 04/21/18 05:28 Exam: Vitals: Reviewed General: Obese white female in standard Clarke's position with notable respiratory discomfort and audible wheezes. Skin: Warm and supple. HEENT: Moist mucous membranes. No conjunctivae pallor. Neck: No lymphadenopathy. No JVD. Chest: Diminished thoracic expansion with diffuse wheezes, rhonchi and rales. Heart: Normal S1 & S2; rhythmic. Abdomen: Very distended but not tense, no focal areas of tenderness or peritoneal reaction elicited. Extremities: 2+ pitting edema of lower extremities. Neurological: Awake, alert and oriented to person, place and time. No focal deficits. Psych: Affect appropriate. - Assessment and Plan (1) Sepsis Current Visit: Yes Status: Acute Assessment and Plan: Sepsis likely secondary to secondary bacterial peritonitis. Patient has mal functioning peritoneal dialysis access, and has fever and leukocytosis. Will broaden antibiotic coverage to cetriaxone and metronidazole. Follow up blood cultures. CT scan shows small amount of intraabdominal ascites with no fluid collections (2) NSTEMI (non-ST elevated myocardial infarction) Current Visit: Yes Status: Acute Assessment and Plan: Patient complained of pressure like chest pain this am that woke her up from sleep along with SOB. relieved with nitroglycerin. Troponins came back elevated at 0.26. EKG showed non specific T wave changes. Will hold apixaban, start heparin drip, obtain 2D echo. Cardiology consulted and appreciate recs (3) Peritonitis Current Visit: Yes Status: Acute Assessment and Plan: Secondary bacterial peritonitis. See #1 (4) Peritoneal dialysis catheter dysfunction Current Visit: Yes Status: Acute Assessment and Plan: Unclear reason for dysfunction. No overt mechanical anomalies noted on CT scan. May be related to a clotted access. Nephrology consultation placed and will be seen for an alternative access in the morning. No emergent indication for dialysis at this time. (5) ESRD (end stage renal disease) on dialysis Current Visit: Yes Status: Chronic Assessment and Plan: As above. (6) VTE (venous thromboembolism) Current Visit: Yes Status: Acute Assessment and Plan: Will continue apixaban twice daily. (7) CAD (coronary artery disease) Current Visit: Yes Status: Chronic Assessment and Plan: Continue nitroglycerin patch daily. Being followed as an outpatient. (8) DEE (obstructive sleep apnea) Current Visit: Yes Status: Acute Assessment and Plan: Start CPAP qhs. (9) COPD (chronic obstructive pulmonary disease) Current Visit: Yes Status: Chronic Assessment and Plan: Will place on duonebs q4hrs for acute exacerbation. Supplemental oxygen as needed. (10) Anemia in chronic kidney disease Current Visit: Yes Status: Chronic Assessment and Plan: Stable. Place on ferrous sulfate supplementation. (11) Tobacco dependence Current Visit: Yes Status: Acute Assessment and Plan: Continues to smoke despite her comorbidities. 5 minutes were spent counseling. (12) Diabetes Current Visit: Yes Status: Acute Assessment and Plan: Will hold oral medications and place on insulin sliding scale for now. (13) Obesity Current Visit: Yes Status: Acute Assessment and Plan: Will benefit from spinal surgeon consultation. Current weight is likely exacerbated by fluid retention as well and is not her dry weight. (14) Hypokalemia Current Visit: Yes Status: Acute Assessment and Plan: Was given 1 dose of KCL 40mEq. Will recheck in the morning. Unlikely to need more given her ESRD state. (15) Shortness of breath Current Visit: Yes Status: Acute Assessment and Plan: Likely multifactorial having a fluid overload state from non-dialysis leading to pulmonary edema, exacerbation of COPD with overlap of DEE. -Will administer 1 dose of furosemide 40mg IVP now and continue BID to reduce her fluid until she is able to undergo renal replacement therapy. -Albuterol/ipratropium q4hrs x 24hrs. Avoiding steroids for now due to possible infection and to avoid fluid retention. -Close respiratory watch. (16) Chest pain Current Visit: Yes Status: Acute DVT Prophylaxis: on apixaban - Time Spent with Patient Total time spent is greater than 50% in coordination of care (as documented) at patient's floor/unit and/or counseling patient: Internal Medicine: Result - Labs CBC & Chem 7: 04/21/18 06:52 04/21/18 06:52 Labs: Short CBC 04/21/18 Range/Units 06:52 WBC 9.4 (4.3-11.1) K/mcL Hgb 8.3 L D (11.5-15.4) g/dL Hct 26.6 L (35.3-44.9) % Plt Count 293 (140-400) K/mcL BMP 04/21/18 06:52 Sodium 139 Potassium 3.6 Chloride 102 Carbon Dioxide 29 BUN 22 H Creatinine 3.28 H Glucose 125 H Calcium 7.9 L - ABG Interpretation ABG results: PT/INR, D-dimer PT 14.1 Seconds (9.4-12.1) H 04/20/18 03:57 - Impressions Impressions Chest X-Ray 04/20/18 15:03 IMPRESSION: Interval placement of right IJ approach temporary hemodialysis catheter with tip projecting over the SVC. No evidence of pneumothorax. Ill-defined perihilar opacities may reflect pulmonary edema. D/ / Rj Sterling MD / Rj Sterling MD Interpreting Provider: Rj Sterling MD Consult Discharge Plan - Plan Referrals: NONE,PCP [Primary Care Provider] - (4) Peritoneal dialysis catheter dysfunction Qualifiers: Encounter type: initial encounter Qualified Code(s): T85.611A - Breakdown ( mechanical) of intraperitoneal dialysis catheter, initial encounter (7) CAD (coronary artery disease) Qualifiers: Coronary Disease-Associated Artery/Lesion type: [place] artery [place] vs. transplanted heart: [place] heart Associated angina: with stable angina Qualified Code(s): I25.118 - Atherosclerotic heart disease of [place] coronary artery with other forms of angina pectoris (9) COPD (chronic obstructive pulmonary disease) Qualifiers: COPD type: COPD with acute exacerbation Qualified Code(s): J44.1 - Chronic obstructive pulmonary disease with (acute) exacerbation (10) Anemia in chronic kidney disease Qualifiers: Chronic kidney disease stage: on chronic dialysis Qualified Code(s): N18.6 - End stage renal disease; D63.1 - Anemia in chronic kidney disease; Z99.2 - Dependence on renal dialysis (12) Diabetes Qualifiers: Diabetes mellitus type: type 2 Diabetes mellitus parts counterman insulin use: without parts counterman use Diabetes mellitus complication status: with unspecified complications Qualified Code(s): E11.8 - Type 2 diabetes mellitus with unspecified complications (13) Obesity Qualifiers: Obesity classification: adult class 3 (BMI >= 40) Serious obesity comorbidity presence: with serious comorbidity Body mass index: BMI 45.0-49.9
[2018-04-21] MEDS ORDERED: GuaiFENesin/Dextromethorphan TABLET PO PRN (08:46)
[2018-04-21] MEDS: Nitroglycerin 0.2 MG PATCH.TD24 TD SCH (08:48)
[2018-04-21] MEDS: Furosemide 40 MG/4 ML VIAL IVP SCH ×2 (08:48→17:29)
[2018-04-21] MEDS: Loratadine 10 MG TABLET PO SCH (08:49)
[2018-04-21] MEDS: Cyanocobalamin (B-12) 1,000 MCG TABLET PO SCH (08:49)
[2018-04-21] MEDS: Gabapentin 300 MG CAPSULE PO SCH ×2 (08:49→20:12)
[2018-04-21] MEDS: Apixaban 2.5 MG TABLET PO SCH (08:50)
[2018-04-21 09:52] LABS: Troponin I 0.26 ng/mL (< 0.04)
[2018-04-21] MEDS: cefTRIAXone 2,000 MG in Water for inj. (sterile) 20 ML 20 ML IVP SCH (12:26)
[2018-04-21] MEDS: Cholecalciferol (D-3) 1,000 UNIT TABLET PO SCH (12:27)
[2018-04-21 13:41] LABS: Hematocrit 26.6 % (35.3-44.9); Mean Corpuscular HGB Conc 30.1 g/dL (31.6-35.5); Mean Corpuscular Volume 79.9 fL (83.0-100.0); Mean Platelet Volume 9.1 fL (9.4-12.4); Platelet Count 279 K/mcL (140-400); Red Blood Count 3.33 M/mcL (3.82-4.97); Red Cell Distribution Width 16.1 % (11.5-14.5)
[2018-04-21 13:47] LABS: Heparin anti-factor XA UFH 0.55 IU/mL (0.30-0.70)
[2018-04-21 13:48] LABS: INR 1.3; Prothrombin Time 15.1 Seconds (9.4-12.1)
--- NOTE | 2018-04-21 15:07 | Nephrology Progress Note ---
Date of Encounter: 04/21/18 Time of Encounter: 12:00 - Assessment and Plan (1) Peritoneal dialysis catheter dysfunction Status: Acute Await eval on monday for possible replacement with Dr Sy Will keep NPO tomorrow Qualifiers: Encounter type: initial encounter Qualified Code(s): T85.611A - Breakdown ( mechanical) of intraperitoneal dialysis catheter, initial encounter (2) ESRD (end stage renal disease) on dialysis Status: Chronic Plan for second HD today with UF planned Lytes stable Volume overload improving (3) Volume overload Status: Acute Second HD today for UF Qualifiers: Hypervolemia type: other Qualified Code(s): E87.79 - Other fluid overload (4) Hypokalemia Status: Resolved Corrected Subjective Interval history: Pt seen and examined this am with chest discomfort but breathing better than yesterday. s/p 2hrs HD yesterday with 3liter UF. Objective - Vital Signs Vital signs: Vital Signs Temp Pulse Resp BP Pulse Ox 04/21/18 11:22 98.6 F 68 21 148/84 100 04/21/18 11:14 17 92 04/21/18 08:21 98.5 F 72 17 133/76 89 04/21/18 05:28 98.3 F 75 18 119/70 85 04/21/18 03:23 21 95 04/21/18 01:32 98.2 F 66 17 119/71 92 04/21/18 00:20 17 92 04/20/18 20:51 99.1 F 73 18 133/62 92 04/20/18 18:35 98.9 F 18 135/58 04/20/18 18:20 118/74 04/20/18 18:05 121/77 04/20/18 17:50 137/78 04/20/18 17:35 129/79 04/20/18 17:20 130/84 04/20/18 17:05 137/86 04/20/18 16:50 166/78 04/20/18 16:35 148/81 04/20/18 16:20 97.5 F L 18 156/82 04/20/18 15:42 99.7 F H 74 17 124/73 91 Intake and Output 04/20/18 04/21/18 04/21/18 23:59 07:59 15:59 Intake Total 600 / 600 100 / 100 160 / 160 Output Total 3600 / 3600 Balance -3000 / -3000 100 / 100 160 / 160 Intake: IV Fluids 100 / 100 Flagyl Premix 500 MG/100 ML 500 100 / 100 mg In 100 ml @ 100 mls/hr IVPB Q8HR [facility] Rx#:[id number] Oral 0 / 0 160 / 160 Intake, Rinseback and Flushes 600 / 600 Output: Urine 0 / 0 Total Dialysis (HD) Output 3600 / 3600 Other: Meal Breakfast Percent of Meal Consumed 90% # Voids 1 Blood Glucose* 112 133 Hemodialysis Net Fluid Removed 3000 (mL) - General Appearance General appearance: Present: chronically ill EENT: Present: ATNC, mucous membranes moist Neck: Present: no JVD, supple Additional Comments: good areation ant bilat Cardiology: Present: edema (improved), normal S1, normal S2 Dialysis Vascular Access: Venous Catheter (temp IJ HD catheter) Gastrointestinal: Present: no tenderness, no guarding (PD catheter in place), obese Integumentary: Present: warm and dry Neurologic: Present: no focal deficit Musculoskeletal: Present: no deformities Psychiatric: Present: mood/affect appropriate - Lab 04/26/18 06:07 04/26/18 06:07 Most recent lab results Calcium 7.9 mg/dL (8.6-10.3) L 04/21/18 06:52 Consult Discharge Plan - Plan Instructions: Hemodialysis (DC), Dialysis Diet (DC), End-Stage Kidney Disease ( DC) Additional Instructions: #1 may shower, no tub bath for 2 weeks #2 wash incisions with soap and water and pat dry daily #3 no lifting, pushing, pulling more than 20 pounds for the next 2 weeks #4 no driving until off narcotics for 24 hours and able to safely react in the car #5 may climb stairs Referrals: Andrea Sy DO [Partnered Physician] - 05/08/18 9:10 am (surgery follow-up) Jose Alejandro Mcnulty MD [Non-Partnered Physician] - 05/02/18 11:00 am (Please follow up as schedule...) NONE,PCP [Primary Care Provider] -
[2018-04-21] MEDS ORDERED: *HR* Heparin 5,000 UNIT/ML VIAL IVP ONE (17:37)
[2018-04-21] MEDS ORDERED: *HR* Heparin 5,000 UNIT/ML VIAL IVP PRN ×4 (17:37→18:00)
[2018-04-21] MEDS ORDERED: Heparin 25,000 UNIT/500 ML D5W 25,000 UNIT/500 ML BAG IVC SCH (18:00)
[2018-04-21] MEDS: Heparin 25,000 UNIT/500 ML D5W 25,000 UNIT/500 ML BAG IVC SCH (18:35)
[2018-04-21 19:35] LABS: Hemoglobin 8.8 g/dL (11.5-15.4); Mean Corpuscular HGB Conc 30.3 g/dL (31.6-35.5); Mean Corpuscular Hemoglobin 24.3 pg (28.0-33.3); Mean Corpuscular Volume 80.1 fL (83.0-100.0); Mean Platelet Volume 9.6 fL (9.4-12.4); Platelet Count 306 K/mcL (140-400); Red Blood Count 3.62 M/mcL (3.82-4.97)
[2018-04-21 19:41] LABS: Heparin anti-factor XA UFH 0.46 IU/mL (0.30-0.70)
[2018-04-21 19:42] LABS: INR 1.3; Prothrombin Time 14.6 Seconds (9.4-12.1)
[2018-04-21] MEDS ORDERED: Apixaban 5 MG TABLET PO SCH (21:00)
[2018-04-22] MEDS: Insulin LISPRO 300 UNITS/3 ML VIAL SQ SCH ×4 (00:40→16:58)
[2018-04-22] MEDS: MetroNIDAZOLE 500 MG/100 ML 500 MG/100 ML BAG IVPB SCH ×3 (00:41→16:58)
[2018-04-22] MEDS: Ipratropium/Albuterol Neb 3 ML IH SCH ×4 (04:19→22:40)
[2018-04-22 07:35] LABS: Hematocrit 25.3 % (35.3-44.9); Hemoglobin 7.7 g/dL (11.5-15.4); Immature Platelets 2.1 % (1.1-6.1); Mean Corpuscular HGB Conc 30.4 g/dL (31.6-35.5); Mean Corpuscular Hemoglobin 24.4 pg (28.0-33.3); Mean Corpuscular Volume 80.3 fL (83.0-100.0); Mean Platelet Volume 9.3 fL (9.4-12.4); Red Blood Count 3.15 M/mcL (3.82-4.97); Red Cell Distribution Width 16.2 % (11.5-14.5)
[2018-04-22 07:56] LABS: Calcium 8.1 mg/dL (8.6-10.3); Potassium 3.5 mEq/L (3.5-5.1)
--- NOTE | 2018-04-22 08:59 | Internal Med Progress Note ---
Hospitalist Progress Note - Encounter Date of Encounter: 04/22/18 Time of Encounter: 08:40 - Subjective Interval History: No acute events overnight - Exam Vitals: Temp Pulse Resp BP Pulse Ox 98.0 F 66 21 138/63 98 04/22/18 07:23 04/22/18 07:23 04/22/18 07:23 04/22/18 07:23 04/22/18 07:23 Exam: Vitals: Reviewed General: Obese white female in standard Clarke's position with notable respiratory discomfort and audible wheezes. Skin: Warm and supple. HEENT: Moist mucous membranes. No conjunctivae pallor. Neck: No lymphadenopathy. No JVD. Chest: Diminished thoracic expansion with diffuse wheezes, rhonchi and rales. Heart: Normal S1 & S2; rhythmic. Abdomen: Very distended but not tense, no focal areas of tenderness or peritoneal reaction elicited. Extremities: 2+ pitting edema of lower extremities. Neurological: Awake, alert and oriented to person, place and time. No focal deficits. Psych: Affect appropriate. - Assessment and Plan (1) Sepsis Current Visit: Yes Status: Acute Assessment and Plan: Sepsis likely secondary to secondary bacterial peritonitis. Patient has mal functioning peritoneal dialysis access, and has fever and leukocytosis. Continue ceftriaxone and metronidazole. Follow up blood cultures. CT scan shows small amount of intraabdominal ascites with no fluid collections (2) NSTEMI (non-ST elevated myocardial infarction) Current Visit: Yes Status: Acute Assessment and Plan: Patient complained of pressure like chest pain this am that woke her up from sleep along with SOB. relieved with nitroglycerin. Troponins came back elevated at 0.26. EKG showed non specific T wave changes. Will hold apixaban, start heparin drip, obtain 2D echo. Cardiology consulted and appreciate recs 04/22. 2 further sets of troponins came back at 0.03. Will plan for nuclear stress test (3) Peritonitis Current Visit: Yes Status: Acute Assessment and Plan: Secondary bacterial peritonitis. See #1 (4) Peritoneal dialysis catheter dysfunction Current Visit: Yes Status: Acute Assessment and Plan: Unclear reason for dysfunction. No overt mechanical anomalies noted on CT scan. Surgery consulted and will see in am for possible repair . (5) ESRD (end stage renal disease) on dialysis Current Visit: Yes Status: Chronic Assessment and Plan: Has received dialysis via temp line. Surgery consulted to fix peritoneal dialysis in am (6) VTE (venous thromboembolism) Current Visit: Yes Status: Acute Assessment and Plan: Will continue apixaban twice daily. (7) CAD (coronary artery disease) Current Visit: Yes Status: Chronic Assessment and Plan: Continue nitroglycerin patch daily. Being followed as an outpatient. (8) DEE (obstructive sleep apnea) Current Visit: Yes Status: Acute Assessment and Plan: Start CPAP qhs. (9) COPD (chronic obstructive pulmonary disease) Current Visit: Yes Status: Chronic Assessment and Plan: Will place on duonebs q4hrs for acute exacerbation. Supplemental oxygen as needed. (10) Anemia in chronic kidney disease Current Visit: Yes Status: Chronic Assessment and Plan: Stable. Place on ferrous sulfate supplementation. (11) Tobacco dependence Current Visit: Yes Status: Acute Assessment and Plan: Continues to smoke despite her comorbidities. 5 minutes were spent counseling. (12) Diabetes Current Visit: Yes Status: Acute Assessment and Plan: Will hold oral medications and place on insulin sliding scale for now. 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 Current weight is likely exacerbated by fluid retention as well and is not her dry weight. (14) Hypokalemia Current Visit: Yes Status: Acute Assessment and Plan: Was given 1 dose of KCL 40mEq. Will recheck in the morning. Unlikely to need more given her ESRD state. (15) Shortness of breath Current Visit: Yes Status: Acute Assessment and Plan: Likely multifactorial having a fluid overload state from non-dialysis leading to pulmonary edema, exacerbation of COPD with overlap of DEE. -Will administer 1 dose of furosemide 40mg IVP now and continue BID to reduce her fluid until she is able to undergo renal replacement therapy. -Albuterol/ipratropium q4hrs x 24hrs. Avoiding steroids for now due to possible infection and to avoid fluid retention. -Close respiratory watch. DVT Prophylaxis: on heparin drip - Time Spent with Patient Total time spent is greater than 50% in coordination of care (as documented) at patient's floor/unit and/or counseling patient: Internal Medicine: Result - Labs CBC & Chem 7: 04/22/18 04:00 04/22/18 04:00 Labs: Short CBC 04/21/18 04/21/18 04/22/18 Range/Units 10:38 18:30 04:00 WBC 9.7 10.9 7.6 (4.3-11.1) K/mcL Hgb 8.0 L 8.8 L 7.7 L (11.5-15.4) g/dL Hct 26.6 L 29.0 L 25.3 L (35.3-44.9) % Plt Count 279 306 310 (140-400) K/mcL BMP 04/21/18 04/22/18 06:52 04:00 Sodium 139 138 Potassium 3.6 3.5 Chloride 102 100 Carbon Dioxide 29 31 H BUN 22 H 15 Creatinine 3.28 H 3.26 H Glucose 125 H 123 H Calcium 7.9 L 8.1 L Cardiac Enzymes 04/21/18 04/21/18 04/21/18 Range/Units 06:52 13:00 18:30 Troponin I 0.26 H* < 0.03 0.03 (< 0.04) ng/mL - ABG Interpretation ABG results: PT/INR, D-dimer PT 14.6 Seconds (9.4-12.1) H 04/21/18 18:30 Consult Discharge Plan - Plan Referrals: NONE,PCP [Primary Care Provider] - (4) Peritoneal dialysis catheter dysfunction Qualifiers: Encounter type: initial encounter Qualified Code(s): T85.611A - Breakdown ( mechanical) of intraperitoneal dialysis catheter, initial encounter (7) CAD (coronary artery disease) Qualifiers: Coronary Disease-Associated Artery/Lesion type: menominee artery [place] vs. transplanted heart: menominee heart Associated angina: with stable angina Qualified Code(s): I25.118 - Atherosclerotic heart disease of menominee coronary artery with other forms of angina pectoris (9) COPD (chronic obstructive pulmonary disease) Qualifiers: COPD type: COPD with acute exacerbation Qualified Code(s): J44.1 - Chronic obstructive pulmonary disease with (acute) exacerbation (10) Anemia in chronic kidney disease Qualifiers: Chronic kidney disease stage: on chronic dialysis Qualified Code(s): N18.6 - End stage renal disease; D63.1 - Anemia in chronic kidney disease; Z99.2 - Dependence on renal dialysis (12) Diabetes Qualifiers: Diabetes mellitus type: type 2 Diabetes mellitus terminal system operator insulin use: without residential use Diabetes mellitus complication status: with unspecified complications Qualified Code(s): E11.8 - Type 2 diabetes mellitus with unspecified complications (13) Obesity Qualifiers: Obesity classification: adult class 3 (BMI >= 40) Serious obesity comorbidity presence: with serious comorbidity Body mass index: BMI 45.0-49.9
--- NOTE | 2018-04-22 09:23 | Cardiology Consult Note ---
Date of Encounter: 04/22/18 Time of Encounter: 14:00 Assessment and Plan (1) Chest pain Current Visit: Yes Status: Acute Chest pain atypical, improved but not resolved, less frequent on long acting nitrates with trivial CAD at previous [facility]. Chest pain not clearly cardiac etiology, more concerning for cholecystitis or esophogeal etiology, both responding to some degree to nitrates. She may have varient angina as a diagnosis of exclusion. Echo ordered, will review for new wall motion abnormalities, Pt is uncertain is she has had a stress test since 2013, will review old records when available, consider stress imaging if not recently performed. Echocardiogram will also evaluate for pericardial disease. Qualifiers: Chest pain type: precordial pain Qualified Code(s): R07.2 - Precordial pain (2) Peritoneal dialysis catheter dysfunction Current Visit: Yes Status: Acute Has recent vascular port, undergoing hemodialysis Qualifiers: Encounter type: initial encounter Qualified Code(s): T85.611A - Breakdown ( mechanical) of intraperitoneal dialysis catheter, initial encounter (3) ESRD (end stage renal disease) on dialysis Current Visit: Yes Status: Chronic shortness of breath and abdominal fullness improved on hemodialysis, anticate will need AV fistula construction at some point, will review echo when available , is at moderate cardiovascular risk for planned procedure. (4) DEE (obstructive sleep apnea) Current Visit: Yes Status: Chronic Reports is compliant with CPAP at home, is not using CPAP at bedside at present. Reviewed indications for using CPAP for taking naps during the day. (5) COPD (chronic obstructive pulmonary disease) Current Visit: Yes Status: Chronic Stable, reports shortness of breath improving with dialysis Qualifiers: COPD type: COPD with acute exacerbation Qualified Code(s): J44.1 - Chronic obstructive pulmonary disease with (acute) exacerbation (6) Tobacco dependence Current Visit: Yes Status: Chronic continues to smoke against medical advice, unable to pick stop date today, declines pharmocologic support. (7) Diabetes Current Visit: Yes Status: Chronic following with primary care, reports is at goal on current tx. Qualifiers: Diabetes mellitus type: type 2 Diabetes mellitus buttermaker continuous churn insulin use: with alf use Diabetes mellitus complication status: with kidney complications Chronic kidney disease stage: on chronic dialysis Qualified Code(s): E11.22 - Type 2 diabetes mellitus with diabetic chronic kidney disease ; N18.6 - End stage renal disease; Z79.4 - marine oil terminal superintendent (current) use of insulin; Z99.2 - Dependence on renal dialysis (8) Elevated troponin I level Current Visit: Yes Status: Acute INitial troponin minimally elevated, now normalized, elevated due to poor renal clearance with non functioning peritoneal dialysis port, not clinically significant. Discussion w patient/family: The assessment and plan as outlined above was discussed with the patient and/or family members who expressed understanding and agreement. All questions were answered. Thank you for involving us in the care of your patient. Please call with any questions. History of Present Illness Consult date: 04/21/18 Requesting physician: Misha Forte Consult reason: Chest pain Chief complaint: shortness of breath, chest pain History of present illness: Ms. Ramirez is a 57 year old female who presented to the ER with complaints of increasing abdominal distention and shortness of breath. She has end stage renal disease, is on peritoneal dialysis, however peritoneal access port has been non-functional over the last four to five days and has not been able to complete tx. She notes increasing abdominal swelling, with progressive dyspnea , starting with exertion, now SOB at rest. She reports she cannot take a deep breath due to feeling "too full". She had venous access port placed and underwent hemodialysis Monday with some improvement in symptoms. She is also complaining of chest pain, left sided, upper chest, comes and goes spontaneously, lasts three minutes to several hours, not associated with diaphoresis, nausea or increased shortness of breath, improves with sublingual ntg. She notes pain can be as severe at 10/10, and has taken two sublingual ntg this week for relief of chest pain. She has hx trivial CAD at [facility] 2013, most severe lesion 20% mid LAD, however has continued to have chest pain, which is less frequent and less severe when she takes Imdur daily. She is minimally active, has been entirely sedentary with the except of self care over the last week. She is currently chest pain free, sleeping on initial presentation, arouses easily, orientated x 3, appears a reliable historian. Past Med Surg Social Fam HX - Past Medical History Medical history: arthritis, asthma, COPD, coronary artery disease, DVT, diabetes , dialysis, GERD, hyperlipidemia, hypertension, renal disease Additional medical history: sleep apnea, Psychiatric history: anxiety, depression - Past Surgical History Surgical History: no surgical history Additional surgical history: Dialysis Catheter - Social History Smoking Status: Current every day smoker Smokeless Tobacco Status: No Alcohol use: none Drug use: none Medications and Allergies Albuterol Neb [Proventil Neb] 2.5 mg IH Q4H PRN 11/24/17 [History] Albuterol Sulfate [Albuterol Inhaler] 2 puff IH Q4H PRN 11/24/17 [History] Apixaban [Eliquis] 2.5 mg PO BID 11/24/17 [History] Cetirizine HCl 10 mg PO DAILY 11/24/17 [History] Cholecalciferol (D-3) [Vitamin D] 2,000 unit PO DAILY 11/24/17 [History] Cyanocobalamin (Vitamin B-12) [Vitamin B12] 1,000 mcg PO DAILY 11/24/17 [History ] Escitalopram [Lexapro] 20 mg PO DAILY 11/24/17 [History] Ferrous Sulfate 325 mg PO DAILY 11/24/17 [History] Furosemide [Lasix] 20 mg PO DAILY 11/24/17 [History] Gabapentin [Neurontin] 600 mg PO BID 11/24/17 [History] Glimepiride [Amaryl] 2 mg PO QAM 11/24/17 [History] Meclizine HCl [Verticalm] 25 mg PO DAILY PRN 11/24/17 [History] Montelukast [Singulair] 10 mg PO DAILY 11/24/17 [History] Nitroglycerin 0.2 mg TD DAILY 11/24/17 [History] Omeprazole [PriLOSEC] 40 mg PO DAILY 11/24/17 [History] Quetiapine Fumarate [Seroquel] 100 mg PO HS 11/24/17 [History] Calcitriol 0.5 mcg PO DAILY 04/20/18 [History] Magnesium Oxide [Magnesium] 400 mg PO BID 04/20/18 [History] Potassium Chloride [Klor-Con 10] 10 meq PO DAILY 04/20/18 [History] 3 Allergy/AdvReac Type Severity Reaction Status Date / Time naproxen Allergy Gastrointestinal Verified 04/19/18 19:02 Upset Penicillins [PCN] AdvReac Fever Verified 04/19/18 19:02 All Systems Review: The remainder of the systems were reviewed and are negative - Constitutional Constitutional: daytime sleepiness, fatigue, lethargy, snoring, weight gain - Cardiovascular Cardiovascular: chest pain at rest, chest pain with exertion, dyspnea on exertion, orthopnea - Respiratory Respiratory: cough, dyspnea - Gastrointestinal Gastrointestinal: abdominal pain - Musculoskeletal Musculoskeletal: arthralgias, back pain, muscle weakness - Neurological Neurological: dizziness - Psychiatric Psychiatric: anxiety, depression Physical Examination Vital Signs, Last 4 Hours Temp Pulse Resp BP Pulse Ox 04/22/18 07:23 98.0 F 66 21 138/63 98 General: Conversant, No Apparent Distress HEENT: Atraumatic, Normocephaly, Mucus Membranes Moist Neck: No JVD, Normal carotid pulses Cardiac: Reg Rate and Rhythm, Normal S1 and S2, No Murmur Lungs: No Wheeze, Rales, Rhonchi, Other (decreased breath sounds, poor inspiratory effort) Neuro: Alert and responsive, No focal deficits noted Abdomen: Other (soft, mildly distended, tender to palpation all four quadrants, negative for rebound) Musculoskeletal: No Chest Wall Tenderness Extremities: No Clubbing, No Cyanosis, Normal Pulses (1+ bilateral pretibial edema) Results 04/22/18 04:00 04/22/18 04:00 Lab Results 04/21/18 04/21/18 04/21/18 06:52 10:38 10:38 WBC 9.7 Hgb 8.0 L Hct 26.6 L Plt Count 279 INR 1.3 Sodium 139 Potassium 3.6 Chloride 102 Carbon Dioxide 29 BUN 22 H Creatinine 3.28 H Glucose 125 H Calcium 7.9 L Troponin I 0.26 H* 04/21/18 04/21/18 04/21/18 13:00 18:30 18:30 WBC 10.9 Hgb 8.8 L Hct 29.0 L Plt Count 306 INR Sodium Potassium Chloride Carbon Dioxide BUN Creatinine Glucose Calcium Troponin I < 0.03 0.03 04/21/18 04/22/18 04/22/18 18:30 04:00 04:00 WBC 7.6 Hgb 7.7 L Hct 25.3 L Plt Count 310 INR 1.3 Sodium 138 Potassium 3.5 Chloride 100 Carbon Dioxide 31 H BUN 15 Creatinine 3.26 H Glucose 123 H Calcium 8.1 L Troponin I Consult Discharge Plan - Plan Referrals: NONE,PCP [Primary Care Provider] -
[2018-04-22] MEDS ORDERED: Perflutren Lipid Microsphere 1.3 ML in 0.9 % Sodium Chloride 8.7 ML IVP ONE (09:41)
[2018-04-22] MEDS: Loratadine 10 MG TABLET PO SCH (10:32)
[2018-04-22] MEDS: Gabapentin 300 MG CAPSULE PO SCH (10:32)
[2018-04-22] MEDS: Cholecalciferol (D-3) 1,000 UNIT TABLET PO SCH (10:32)
[2018-04-22] MEDS: Cyanocobalamin (B-12) 1,000 MCG TABLET PO SCH (10:32)
[2018-04-22] MEDS: Furosemide 40 MG/4 ML VIAL IVP SCH ×3 (10:33→18:42)
[2018-04-22] MEDS: Nitroglycerin 0.2 MG PATCH.TD24 TD SCH (10:51)
[2018-04-22] MEDS: cefTRIAXone 2,000 MG in Water for inj. (sterile) 20 ML 20 ML IVP SCH (10:54)
--- NOTE | 2018-04-22 11:55 | Nephrology Progress Note ---
Date of Encounter: 04/22/18 Time of Encounter: 11:30 - Assessment and Plan (1) Peritoneal dialysis catheter dysfunction Status: Acute Await eval on monday for possible replacement with Dr Sy Will need to hold heparin gtt if and when surgical intervention Will keep NPO Of note, there has not been any signs of peritonitis ie no symptoms and due to catheter problems have not been able to send fluids for cell count or culture Qualifiers: Encounter type: initial encounter Qualified Code(s): T85.611A - Breakdown ( mechanical) of intraperitoneal dialysis catheter, initial encounter (2) ESRD (end stage renal disease) on dialysis Status: Chronic s/p second HD with UF at 3liters a day The plan is to resume PD urgent start with low volumes while supine if possible but pt is aware this might not be possible and in that case will need permcath for outpatient HD while new PD catheter site heals and then resume PD. (3) Volume overload Status: Acute Resolving after 2 HD sessions Qualifiers: Hypervolemia type: other Qualified Code(s): E87.79 - Other fluid overload (4) Hypokalemia Status: Resolved Corrected Subjective Interval history: Pt seen and examined feels better overall with no more chest pain. No abd pain. No fevers or chills. s/p second HD session yesterday with 3kg UF for a total of 6kg in the past 2 days.Currently off eliquis on heparin gtt Objective - Vital Signs Vital signs: Vital Signs Temp Pulse Resp BP Pulse Ox 04/22/18 07:23 98.0 F 66 21 138/63 98 04/22/18 04:21 16 92 04/22/18 04:06 98.2 F 69 17 105/64 91 04/22/18 00:28 98.1 F 76 17 94/52 90 04/21/18 22:46 19 96 04/21/18 22:38 16 91 04/21/18 18:26 98.3 F 84 16 113/65 92 04/21/18 17:21 97.5 F L 18 135/68 04/21/18 17:05 113/76 04/21/18 16:50 123/70 04/21/18 16:35 130/71 04/21/18 16:20 129/66 04/21/18 16:05 124/62 04/21/18 15:50 127/70 08/18/18 15:35 120/65 04/21/18 15:20 121/57 04/21/18 15:05 121/65 04/21/18 14:50 121/61 04/21/18 14:35 122/65 04/21/18 14:20 127/69 04/21/18 14:05 98 F 18 135/61 Intake and Output 04/21/18 04/22/18 04/22/18 23:59 07:59 15:59 Intake Total 167 / 167 188 / 188 Output Total 3600 / 3600 Balance -3433 / -3433 188 / 188 Intake: IV Fluids 167 / 167 188 / 188 Heparin 25,000 UNIT/500 ML D5W 67 / 67 88 / 88 25,000 unit In 500 ml @ 8.4 UNIT/KG/HR 20.143 mls/hr IVC . Q24H [facility] Rx#:[id number] Flagyl Premix 500 MG/100 ML 500 100 / 100 100 / 100 mg In 100 ml @ 100 mls/hr IVPB Q8HR [facility] Rx#:[id number] Output: Urine 0 / 0 Total Dialysis (HD) Output 3600 / 3600 Other: Weight 117.1 kg Blood Glucose* 181 135 Hemodialysis Net Fluid Removed 3000 (mL) Patient Weight 04/22/18 23:59 Weight 117.1 kg - General Appearance General appearance: Present: well-developed, well-nourished EENT: Present: ATNC, mucous membranes moist Neck: Present: no JVD, supple Additional Comments: good areation ant bilat Cardiology: Present: no edema, normal S1, normal S2 Dialysis Vascular Access: Venous Catheter (temp IJ HD catheter) Gastrointestinal: Present: no tenderness, no guarding, obese Additional Comments: PD catheter site with dressing but no drainage noted Integumentary: Present: warm and dry Neurologic: Present: no focal deficit Musculoskeletal: Present: no deformities Psychiatric: Present: mood/affect appropriate, cooperative - Lab 04/26/18 06:07 04/26/18 06:07 Most recent lab results Calcium 8.1 mg/dL (8.6-10.3) L 04/22/18 04:00 Consult Discharge Plan - Plan Instructions: Hemodialysis (DC), Dialysis Diet (DC), End-Stage Kidney Disease ( DC) Additional Instructions: #1 may shower, no tub bath for 2 weeks #2 wash incisions with soap and water and pat dry daily #3 no lifting, pushing, pulling more than 20 pounds for the next 2 weeks #4 no driving until off narcotics for 24 hours and able to safely react in the car #5 may climb stairs Referrals: Andrea Sy DO [Partnered Physician] - 05/08/18 9:10 am (surgery follow-up) Jose Alejandro Mcnulty MD [Non-Partnered Physician] - 05/02/18 11:00 am (Please follow up as schedule...) NONE,PCP [Primary Care Provider] -
[2018-04-22] MEDS: Heparin 25,000 UNIT/500 ML D5W 25,000 UNIT/500 ML BAG IVC SCH (21:08)
[2018-04-23] MEDS: MetroNIDAZOLE 500 MG/100 ML 500 MG/100 ML BAG IVPB SCH ×3 (00:30→16:26)
[2018-04-23 03:02] LABS: Bilirubin,Urine Negative (Negative); Blood,Urine Large (Negative); Clarity,Urine Cloudy (Clear); Color,Urine Dark Yellow (Yellow); Glucose,Urine (UA) Normal (Normal); Ketones,Urine Trace mg/dL (Negative); Leukocyte Esterase,Urine Small (Negative); Nitrite,Urine Negative (Negative); PH,Urine 5.5 pH Units (5.0-8.0); Protein,Urine 100 mg/dL (Neg-Trace); Specific Gravity,Urine 1.016 (1.010-1.025); Urobilinogen,Urine Normal (Normal)
[2018-04-23 03:03] LABS: Squamous Epithelial Cell,Urine Many per lpf (None-Few); WBC,Urine 15-30 per hpf (0-3)
[2018-04-23 03:13] LABS: RBC,Urine 15-30 per hpf (0-3)
[2018-04-23 03:14] LABS: Bacteria,Urine Moderate per hpf (None-Few)
[2018-04-23] MEDS: Ipratropium/Albuterol Neb 3 ML IH SCH ×4 (04:07→22:49)
[2018-04-23 05:01] LABS: Hematocrit 25.6 % (35.3-44.9); Hemoglobin 7.8 g/dL (11.5-15.4); Mean Corpuscular HGB Conc 30.5 g/dL (31.6-35.5); Mean Corpuscular Hemoglobin 24.4 pg (28.0-33.3); Mean Platelet Volume 9.5 fL (9.4-12.4); Platelet Count 304 K/mcL (140-400)
[2018-04-23] MEDS: Insulin LISPRO 300 UNITS/3 ML VIAL SQ SCH ×4 (05:10→16:42)
[2018-04-23 05:21] LABS: Calcium 8.1 mg/dL (8.6-10.3); Potassium 3.3 mEq/L (3.5-5.1)
[2018-04-23] MEDS ORDERED: Regadenoson 0.4 MG/5 ML SYRINGE IVP ONE (05:41)
--- NOTE | 2018-04-23 09:37 | Internal Med Progress Note ---
Hospitalist Progress Note - Encounter Date of Encounter: 04/23/18 Time of Encounter: 09:30 - Subjective Interval History: No acute events overnight - Exam Vitals: Temp Pulse Resp BP Pulse Ox 98.1 F 74 16 132/64 89 04/23/18 03:47 04/23/18 03:47 04/23/18 04:07 04/23/18 03:47 04/23/18 04:07 Exam: Vitals: Reviewed General: Obese white female in standard Clarke's position with notable respiratory discomfort and audible wheezes. Skin: Warm and supple. HEENT: Moist mucous membranes. No conjunctivae pallor. Neck: No lymphadenopathy. No JVD. Chest: Diminished thoracic expansion with diffuse wheezes, rhonchi and rales. Heart: Normal S1 & S2; rhythmic. Abdomen: Very distended but not tense, no focal areas of tenderness or peritoneal reaction elicited. Extremities: 2+ pitting edema of lower extremities. Neurological: Awake, alert and oriented to person, place and time. No focal deficits. Psych: Affect appropriate. - Assessment and Plan (1) Peritoneal dialysis catheter dysfunction Current Visit: Yes Status: Acute Assessment and Plan: 04/23 Unclear reason for dysfunction. No overt mechanical anomalies noted on CT scan. Has had temporary dialysis catheter placed and has been getting dialysis through temp catheter. Surgery has been consulted for peritoneal dialysis catheter repair/replacement and surgery is planned for tomorrow . (2) Sepsis Current Visit: Yes Status: Acute Assessment and Plan: Sepsis likely secondary to secondary bacterial peritonitis. Patient has mal functioning peritoneal dialysis access, and came in with fever and leukocytosis. Continue ceftriaxone and metronidazole. Follow up blood cultures. CT scan shows small amount of intraabdominal ascites with no fluid collections. Currently resolving. Leukocytosis has resolved. Can plan for 5-7 day course of antibiotics total pending blood cultures (3) NSTEMI (non-ST elevated myocardial infarction) Current Visit: Yes Status: Acute Assessment and Plan: Patient complained of pressure like chest pain this am that woke her up from sleep along with SOB. relieved with nitroglycerin. Troponins came back elevated at 0.26. EKG showed non specific T wave changes. Will hold apixaban, start heparin drip, obtain 2D echo. Cardiology consulted and appreciate recs 04/23. 2 further sets of troponins came back at 0.03. Echo came back WNL. Has been seen by cardiology who recommend stress test. Patient says she would prefer to have stress test done outpatient (4) Peritonitis Current Visit: Yes Status: Acute Assessment and Plan: Secondary bacterial peritonitis. See #1 (5) ESRD (end stage renal disease) on dialysis Current Visit: Yes Status: Chronic Assessment and Plan: Has received dialysis via temp line. Surgery consulted to repair/ replace peritoneal dialysis access (6) VTE (venous thromboembolism) Current Visit: Yes Status: Acute Assessment and Plan: History of DVT. On apixaban at home but this has been held and switched to heparin drip for possible surgery (7) CAD (coronary artery disease) Current Visit: Yes Status: Chronic Assessment and Plan: Continue nitroglycerin patch daily. Being followed as an outpatient. (8) DEE (obstructive sleep apnea) Current Visit: Yes Status: Chronic Assessment and Plan: Start CPAP qhs. (9) COPD (chronic obstructive pulmonary disease) Current Visit: Yes Status: Chronic Assessment and Plan: Will place on duonebs q4hrs for acute exacerbation. Supplemental oxygen as needed. (10) Anemia in chronic kidney disease Current Visit: Yes Status: Chronic Assessment and Plan: Stable. Place on ferrous sulfate supplementation. (11) Tobacco dependence Current Visit: Yes Status: Chronic Assessment and Plan: Continues to smoke despite her comorbidities. 5 minutes were spent counseling. (12) Diabetes Current Visit: Yes Status: Chronic Assessment and Plan: Will hold oral medications and place on insulin sliding scale for now. (13) Obesity Current Visit: Yes Status: Acute Assessment and Plan: Will benefit from polisher sand consultation. Current weight is likely exacerbated by fluid retention as well and is not her dry weight. (14) Hypokalemia Current Visit: Yes Status: Acute Assessment and Plan: Was given 1 dose of KCL 40mEq. Will recheck in the morning. Unlikely to need more given her ESRD state. (15) Shortness of breath Current Visit: Yes Status: Acute Assessment and Plan: Likely multifactorial having a fluid overload state from non-dialysis leading to pulmonary edema, exacerbation of COPD with overlap of DEE. -Will administer 1 dose of furosemide 40mg IVP now and continue BID to reduce her fluid until she is able to undergo renal replacement therapy. -Albuterol/ipratropium q4hrs x 24hrs. Avoiding steroids for now due to possible infection and to avoid fluid retention. -Close respiratory watch. - Time Spent with Patient Total time spent is greater than 50% in coordination of care (as documented) at patient's floor/unit and/or counseling patient: Internal Medicine: Result - Labs CBC & Chem 7: 04/23/18 04:00 04/23/18 04:32 Labs: Short CBC 04/23/18 Range/Units 04:00 WBC 8.3 (4.3-11.1) K/mcL Hgb 7.8 L (11.5-15.4) g/dL Hct 25.6 L (35.3-44.9) % Plt Count 304 (140-400) K/mcL BMP 04/23/18 04:32 Sodium 138 Potassium 3.3 L Chloride 100 Carbon Dioxide 28 BUN 20 Creatinine 4.23 H Glucose 120 H Calcium 8.1 L Urine 04/23/18 Range/Units 01:45 Urine Color Dark Yellow (Yellow) Urine Clarity Cloudy A (Clear) Urine pH 5.5 (5.0-8.0) pH Units Ur Specific [place] 1.016 (1.010-1.025) Urine Protein 100 H (Neg-Trace) mg/dL Urine Glucose (UA) Normal (Normal) mg/dL - ABG Interpretation ABG results: PT/INR, D-dimer PT 14.6 Seconds (9.4-12.1) H 04/21/18 18:30 - Impressions Impressions Echocardiogram 04/22/18 10:36 Impressions: LVEF 60-65%. Normal LV chamber size, wall thickness and function. Mild left ventricular diastolic dysfunction. Mildly dilated right ventricle with normal function. No evidence of pulmonary hypertension. No significant valvular dysfunction. Left Ventricular Wall Motion: Rest Echo Findings All wall segments showed normal motion. Findings: Study Quality * Technically sub-optimal due to body habitus. ECG Findings * Normal sinus rhythm. Left Ventricle * LVEF 60-65%. * Normal LV chamber size, wall thickness and function. * Mild left ventricular diastolic dysfunction. Right Ventricle * Mildly dilated right ventricle with normal function. Left Atrium * Moderately dilated left atrium. Right Atrium * Mildly dilated right atrium. Aortic Valve * Aortic valve not well visualized. * No aortic regurgitation. * No aortic stenosis. Mitral Valve * Normal mitral valve structure and function. * No mitral regurgitation. * No mitral stenosis. Tricuspid Valve * Normal tricuspid valve structure and function. * Trace tricuspid regurgitation. * No evidence of pulmonary hypertension. Pulmonic Valve * No pulmonic regurgitation. Aorta * Normally sized aortic root. Pericardium * There is a trivial pericardial effusion present. IVC * Normal IVC dimensions and inspiratory collapse. Pulmonary Artery * Normal visualized portions of the main pulmonary artery. Consult Discharge Plan - Plan Referrals: NONE,PCP [Primary Care Provider] - (1) Peritoneal dialysis catheter dysfunction Qualifiers: Encounter type: initial encounter Qualified Code(s): T85.611A - Breakdown ( mechanical) of intraperitoneal dialysis catheter, initial encounter (7) CAD (coronary artery disease) Qualifiers: Coronary Disease-Associated Artery/Lesion type: [place] artery [place] vs. transplanted heart: [place] heart Associated angina: with stable angina Qualified Code(s): I25.118 - Atherosclerotic heart disease of [place] coronary artery with other forms of angina pectoris (9) COPD (chronic obstructive pulmonary disease) Qualifiers: COPD type: COPD with acute exacerbation Qualified Code(s): J44.1 - Chronic obstructive pulmonary disease with (acute) exacerbation (10) Anemia in chronic kidney disease Qualifiers: Chronic kidney disease stage: on chronic dialysis Qualified Code(s): N18.6 - End stage renal disease; D63.1 - Anemia in chronic kidney disease; Z99.2 - Dependence on renal dialysis (12) Diabetes Qualifiers: Diabetes mellitus type: type 2 Diabetes mellitus penitentiary insulin use: with penitentiary use Diabetes mellitus complication status: with kidney complications Chronic kidney disease stage: on chronic dialysis (13) Obesity Qualifiers: Obesity classification: adult class 3 (BMI >= 40) Serious obesity comorbidity presence: with serious comorbidity Body mass index: BMI 45.0-49.9
[2018-04-23] MEDS: Cyanocobalamin (B-12) 1,000 MCG TABLET PO SCH (09:55)
[2018-04-23] MEDS: Gabapentin 300 MG CAPSULE PO SCH ×2 (09:55→21:01)
[2018-04-23] MEDS: Nitroglycerin 0.2 MG PATCH.TD24 TD SCH (09:55)
[2018-04-23] MEDS: cefTRIAXone 2,000 MG in Water for inj. (sterile) 20 ML 20 ML IVP SCH (09:55)
[2018-04-23] MEDS: Furosemide 40 MG/4 ML VIAL IVP SCH ×2 (09:56→16:26)
[2018-04-23] MEDS: Cholecalciferol (D-3) 1,000 UNIT TABLET PO SCH (09:56)
[2018-04-23] MEDS: Loratadine 10 MG TABLET PO SCH (09:56)
--- NOTE | 2018-04-23 12:30 | Nephrology Progress Note ---
Date of Encounter: 04/23/18 Time of Encounter: 12:27 - Assessment and Plan (1) Peritoneal dialysis catheter dysfunction Current Visit: Yes Status: Acute OR scheduled for 1230 tomorrow. Npo after midnight tonight. Recommend holding Heparin gtt before OR tomorrow, and resuming after procedure. Primary team aware of recommendation to hold Heparin gtt before OR. Of note, there has not been any signs of peritonitis ie no symptoms and due to catheter problems have not been able to send fluids for cell count or culture Qualifiers: Encounter type: initial encounter Qualified Code(s): T85.611A - Breakdown ( mechanical) of intraperitoneal dialysis catheter, initial encounter (2) ESRD (end stage renal disease) on dialysis Current Visit: Yes Status: Chronic Will plan for HD tomorrow am. The plan is to resume PD urgent start with low volumes while supine. Pt is aware this might not be possible and in that case will need permcath for outpatient HD while new PD catheter site heals and then resume PD. (3) Hypokalemia Current Visit: Yes Status: Acute Corrected (4) Volume overload Current Visit: Yes Status: Acute Improving. Qualifiers: Qualified Code(s): E87.70 - Fluid overload, unspecified Subjective Principal diagnosis: malfunctioing PD cath Interval history: Pt seen and examined, doing well. Objective - Vital Signs Vital signs: Vital Signs Temp Pulse Resp BP Pulse Ox 04/23/18 11:47 98.1 F 75 17 125/80 90 04/23/18 10:30 16 90 04/23/18 09:38 98.0 F 72 16 133/73 90 04/23/18 04:07 16 89 04/23/18 03:47 98.1 F 74 18 132/64 90 04/22/18 23:40 98.8 F 75 20 103/65 91 04/22/18 18:27 99.0 F 73 18 112/60 90 04/22/18 16:15 98.2 F 78 20 99/68 90 04/22/18 15:20 16 99/68 90 Intake and Output 04/22/18 04/23/18 04/23/18 23:59 07:59 15:59 Intake Total 445 / 445 293 / 293 179 / 179 Balance 445 / 445 293 / 293 179 / 179 Intake: IV Fluids 445 / 445 293 / 293 179 / 179 Heparin 25,000 UNIT/500 ML D5W 345 / 345 193 / 193 179 / 179 25,000 unit In 500 ml @ 8.4 UNIT/KG/HR 20.143 mls/hr IVC . Q24H [facility] Rx#:[id number] Flagyl Premix 500 MG/100 ML 500 100 / 100 100 / 100 mg In 100 ml @ 100 mls/hr IVPB Q8HR [facility] Rx#:[id number] Other: Weight 114.668 kg 114.668 kg Blood Glucose* 132 126 Patient Weight 04/23/18 23:59 Weight 114.668 kg - General Appearance General appearance: Present: well-developed, well-nourished EENT: Present: ATNC, hearing intact, vision intact Neck: Present: supple Respiratory: Present: clear Cardiology: Present: edema (LUE, non pitting. ), normal S1, normal S2 Dialysis Vascular Access: Venous Catheter (Tunneled Line, DRSG C/D/I) Gastrointestinal: Present: normoactive bowel sounds, no tenderness, no guarding Integumentary: Present: no rash, warm and dry Neurologic: Present: alert and oriented x3 Psychiatric: Present: mood/affect appropriate, cooperative - Lab 04/23/18 04:00 04/23/18 04:32 Most recent lab results Calcium 8.1 mg/dL (8.6-10.3) L 04/23/18 04:32 Consult Discharge Plan - Plan Referrals: NONE,PCP [Primary Care Provider] -
--- NOTE | 2018-04-23 12:48 | General Surgery Consult Note ---
Date of Encounter: 04/23/18 Time of Encounter: 10:00 Assessment and Plan (1) Peritoneal dialysis catheter dysfunction Current Visit: Yes Status: Acute Plan for removal and replacement of PD catheter with Dr. Sy on Monday around 1230 if patient cleared per cardiology for surgery. NPO after midnight Hold heparin for 2 hours prior to surgical intervention Continue hemodyalysis per nephrology while awaiting replacement of PD catheter Qualifiers: Encounter type: initial encounter Qualified Code(s): T85.611A - Breakdown ( mechanical) of intraperitoneal dialysis catheter, initial encounter (2) ESRD (end stage renal disease) on dialysis Current Visit: Yes Status: Chronic Nephrology following Continue hemodialysis while awaiting replacement of PD catheter History of Present Illness Consult date: 04/20/18 Reason for consult: other (malfunctioning peritoneal dialysis catheter) Requesting physician: Cynthia Mcclain History of present illness: Ms. Ramirez is a 57 year old female with a history significant for ESRD. She had a peritoneal catheter placed in November of [address] Sy which has worked well up until approximately 1 weeks ago. She states that the catheter will no longer flush. She has been admitted to the hospital and a temporary dialysis has been placed for hemodialysis. She did have an initial elevation in her troponin at 0.28. She has also complained of chest pain. Cardiology has been consulted and the patient is currently on a heparin gtt. Her bump in troponin is felt to be related to stress response per cardiology. Echo shows LVEF of 60-65%. The patient denies any abdominal pain. She denies any nausea/ vomiting or changes in appetite. Denies any changes in bowel habits. She does admit to chronic diarrhea without melena or hematochezia. Denies any fevers or chills. We have been asked to see and evaluate the patient for replacement of her PD catheter. Past Med Surg Social Fam HX - Past Medical History Source: patient, old records reviewed Medical history: arthritis, asthma, COPD, coronary artery disease, DVT, diabetes , dialysis, GERD, hyperlipidemia, hypertension, renal disease Additional medical history: sleep apnea, Psychiatric history: anxiety, depression - Past Surgical History Surgical History: other (PD catheter placement in November of 2017) Additional surgical history: Dialysis Catheter - Social History Smoking Status: Current every day smoker Smokeless Tobacco Status: No Alcohol use: none Drug use: none Medications and Allergies Albuterol Neb [Proventil Neb] 2.5 mg IH Q4H PRN 11/24/17 [History] Albuterol Sulfate [Albuterol Inhaler] 2 puff IH Q4H PRN 11/24/17 [History] Apixaban [Eliquis] 2.5 mg PO BID 11/24/17 [History] Cetirizine HCl 10 mg PO DAILY 11/24/17 [History] Cholecalciferol (D-3) [Vitamin D] 2,000 unit PO DAILY 11/24/17 [History] Cyanocobalamin (Vitamin B-12) [Vitamin B12] 1,000 mcg PO DAILY 11/24/17 [History ] Escitalopram [Lexapro] 20 mg PO DAILY 11/24/17 [History] Ferrous Sulfate 325 mg PO DAILY 11/24/17 [History] Furosemide [Lasix] 20 mg PO DAILY 11/24/17 [History] Gabapentin [Neurontin] 600 mg PO BID 11/24/17 [History] Glimepiride [Amaryl] 2 mg PO QAM 11/24/17 [History] Meclizine HCl [Verticalm] 25 mg PO DAILY PRN 11/24/17 [History] Montelukast [Singulair] 10 mg PO DAILY 11/24/17 [History] Nitroglycerin 0.2 mg TD DAILY 11/24/17 [History] Omeprazole [PriLOSEC] 40 mg PO DAILY 11/24/17 [History] Quetiapine Fumarate [Seroquel] 100 mg PO HS 11/24/17 [History] Calcitriol 0.5 mcg PO DAILY 04/20/18 [History] Magnesium Oxide [Magnesium] 400 mg PO BID 04/20/18 [History] Potassium Chloride [Klor-Con 10] 10 meq PO DAILY 04/20/18 [History] 3 Allergy/AdvReac Type Severity Reaction Status Date / Time naproxen Allergy Gastrointestinal Verified 04/19/18 19:02 Upset Penicillins [PCN] AdvReac Fever Verified 04/19/18 19:02 Review of Systems All systems PM: reviewed and no additional remarkable complaints except as stated (in the HPI) All systems PM: The remainder of the systems were reviewed and are negative General Surgery Exam Initial Vital Signs Temp Pulse Resp BP Pulse Ox 98.6 F 75 28 125/76 93 04/19/18 19:02 04/19/18 19:02 04/19/18 19:02 04/19/18 19:02 04/19/18 19:02 - General physical appearance well developed, well nourished, no distress, chronically ill - Eyes normal ocular movement - ENT normal mucosa, atraumatic, normocephalic - Neck trachea midline - Respiratory normal respiratory effort, clear to auscultation - Cardiovascular Cardiovascular exam: Present: RRR - Abdomen Abdomen general surgery: Present: bowel sounds present, soft, non tender, wound (PD catheter secure) - Integumentary Integumentary general surgery: Present: warm and dry - Neurologic Present: CN 2-12 grossly intact - Psychiatric Psychiatric general surgery: Present: appropriate, oriented to person, oriented to place, oriented to time, speech is normal, memory intact Exam Initial Vital Signs Temp Pulse Resp BP Pulse Ox 98.6 F 75 28 125/76 93 04/19/18 19:02 04/19/18 19:02 04/19/18 19:02 04/19/18 19:02 04/19/18 19:02 Results - Labs 04/23/18 04:00 04/23/18 04:32 Abnormal lab results RBC 3.20 M/mcL (3.82-4.97) L 04/23/18 04:00 Hgb 7.8 g/dL (11.5-15.4) L 04/23/18 04:00 Hct 25.6 % (35.3-44.9) L 04/23/18 04:00 MCV 80.0 fL (83.0-100.0) L 04/23/18 04:00 MCH 24.4 pg (28.0-33.3) L 04/23/18 04:00 MCHC 30.5 g/dL (31.6-35.5) L 04/23/18 04:00 RDW 16.0 % (11.5-14.5) H 04/23/18 04:00 Neutrophils # 11.1 K/mcL (1.6-8.9) H 04/20/18 00:34 PT 14.6 Seconds (9.4-12.1) H 04/21/18 18:30 Potassium 3.3 mEq/L (3.5-5.1) L 04/23/18 04:32 Creatinine 4.23 mg/dL (0.60-1.20) H 04/23/18 04:32 Est GFR ( Amer) 13 (> 60) L 04/23/18 04:32 Est GFR (Non-Af Amer) 11 (> 60) L 04/23/18 04:32 BUN/Creatinine Ratio 5 (6-26) L 04/23/18 04:32 Glucose 120 mg/dL (70-105) H 04/23/18 04:32 POC Glucose 132 mg/dL (70-99) H 04/22/18 16:49 Calcium 8.1 mg/dL (8.6-10.3) L 04/23/18 04:32 Urine Clarity Cloudy (Clear) A 04/23/18 01:45 Urine Protein 100 mg/dL (Neg-Trace) H 04/23/18 01:45 Urine Ketones Trace mg/dL (Negative) H 04/23/18 01:45 Urine Blood Large (Negative) H 04/23/18 01:45 Ur Leukocyte Esterase Small (Negative) H 04/23/18 01:45 Urine Microscopic RBC 15-30 per hpf (0-3) H 04/23/18 01:45 Urine Microscopic WBC 15-30 per hpf (0-3) H 04/23/18 01:45 Ur Squamous Epith Cells Many per lpf (None-Few) H 04/23/18 01:45 Urine Bacteria Moderate per hpf (None-Few) H 04/23/18 01:45 Ur Culture Indicated? NO. (NO) A 04/23/18 01:45 Diabetes panel 04/23/18 Range/Units 04:32 Sodium 138 (136-145) mEq/L Potassium 3.3 L (3.5-5.1) mEq/L Chloride 100 (98-107) mEq/L Carbon Dioxide 28 (23-29) mEq/L BUN 20 (6-20) mg/dL Creatinine 4.23 H (0.60-1.20) mg/dL Glucose 120 H (70-105) mg/dL Calcium 8.1 L (8.6-10.3) mg/dL Calcium panel 04/23/18 Range/Units 04:32 Calcium 8.1 L (8.6-10.3) mg/dL Pituitary panel 04/23/18 Range/Units 04:32 Sodium 138 (136-145) mEq/L Potassium 3.3 L (3.5-5.1) mEq/L Chloride 100 (98-107) mEq/L Carbon Dioxide 28 (23-29) mEq/L BUN 20 (6-20) mg/dL Creatinine 4.23 H (0.60-1.20) mg/dL Glucose 120 H (70-105) mg/dL Calcium 8.1 L (8.6-10.3) mg/dL Adrenal panel 04/23/18 Range/Units 04:32 Sodium 138 (136-145) mEq/L Potassium 3.3 L (3.5-5.1) mEq/L Chloride 100 (98-107) mEq/L Carbon Dioxide 28 (23-29) mEq/L BUN 20 (6-20) mg/dL Creatinine 4.23 H (0.60-1.20) mg/dL Glucose 120 H (70-105) mg/dL Calcium 8.1 L (8.6-10.3) mg/dL All other labs normal. - Imaging Additional studies: Abdomen/Pelvis CT 04/19/18 19:40 IMPRESSION: 1. Peritoneal dialysis catheter in place within the anterior lower abdomen. There is a small amount of intra-abdominal and pelvic ascites, which is expected with peritoneal dialysis. No organized fluid collections are identified within the limits of this unenhanced study. 2. No acute process in the abdomen or pelvis. 3. Trace pleural fluid at the lung bases. D/ / 04/19/2018 21:11:31 Ellen Baig / ember Interpreting Provider: Ellen Baig Chest X-Ray 04/20/18 15:03 IMPRESSION: Interval placement of right IJ approach temporary hemodialysis catheter with tip projecting over the SVC. No evidence of pneumothorax. Ill-defined perihilar opacities may reflect pulmonary edema. D/ / Rj Sterling MD / Rj Sterling MD Interpreting Provider: Rj Sterling MD Echocardiogram 04/22/18 10:36 Impressions: LVEF 60-65%. Normal LV chamber size, wall thickness and function. Mild left ventricular diastolic dysfunction. Mildly dilated right ventricle with normal function. No evidence of pulmonary hypertension. No significant valvular dysfunction. Left Ventricular Wall Motion: Rest Echo Findings All wall segments showed normal motion. Findings: Study Quality * Technically sub-optimal due to body habitus. ECG Findings * Normal sinus rhythm. Left Ventricle * LVEF 60-65%. * Normal LV chamber size, wall thickness and function. * Mild left ventricular diastolic dysfunction. Right Ventricle * Mildly dilated right ventricle with normal function. Left Atrium * Moderately dilated left atrium. Right Atrium * Mildly dilated right atrium. Aortic Valve * Aortic valve not well visualized. * No aortic regurgitation. * No aortic stenosis. Mitral Valve * Normal mitral valve structure and function. * No mitral regurgitation. * No mitral stenosis. Tricuspid Valve * Normal tricuspid valve structure and function. * Trace tricuspid regurgitation. * No evidence of pulmonary hypertension. Pulmonic Valve * No pulmonic regurgitation. Aorta * Normally sized aortic root. Pericardium * There is a trivial pericardial effusion present. IVC * Normal IVC dimensions and inspiratory collapse. Pulmonary Artery * Normal visualized portions of the main pulmonary artery. Consult Discharge Plan - Plan Referrals: NONE,PCP [Primary Care Provider] - - Attending Attestation For this encounter, I have reviewed the DATA DEVELOPER or PA documentation, treatment plan, and medical decision making; and I have had face to face time with this patient.
--- NOTE | 2018-04-23 14:57 | Electrocardiograph Report ---
[place] [id number] Test Date: 2018-04-21 Pat Name: Nallely Ramirez Department: 112 Room: 2A25 Gender: Automotive Technician: ZABRINA : 1960 Requested By: Triny Valdivia Order Number: [id number] Reading MD: Darnell Blackburn Measurements Intervals Leonard Rate: 73 P: 47 ND: 167 QRS: -14 QRSD: 88 T: 0 QT: 408 QTc: 434 Interpretive Statements SINUS RHYTHM NONSPECIFIC T-WAVE ABNORMALITY Electronically Signed On 04-23-2018 14:55:25 EDT by Darnell Blackburn
[2018-04-23] MEDS: Heparin 25,000 UNIT/500 ML D5W 25,000 UNIT/500 ML BAG IVC SCH (16:26)
--- NOTE | 2018-04-23 17:36 | Anesthesia Evaluation PreOp ---
Date of Encounter: 04/23/18 Time of Encounter: 17:30 - Past History Planned Operation: PD Cath Insertion Cardiac History: Angina (Chronic,stable), HTN, Arrhythmia, Other (Anemia chronic disease) Pulmonary History: Smoker (30 pack year), Asthma, COPD, DEE Dx [employer] History: Denies Any Significant HX Other Medical History: Renal (ESRD will be dialyzed 8-21 am), Diabetes Type II, GERD, Other (Morbid Obesity) Anesthesia History: No Prior Anesthetic Complications, Past Anesthesia (PD Lap Insertion, Easy intubation MAC 3 blade) : No Alcohol Use: none Drug use: none Medications and Allergies Albuterol Neb [Proventil Neb] 2.5 mg IH Q4H PRN 11/24/17 [History] Albuterol Sulfate [Albuterol Inhaler] 2 puff IH Q4H PRN 11/24/17 [History] Apixaban [Eliquis] 2.5 mg PO BID 11/24/17 [History] Cetirizine HCl 10 mg PO DAILY 11/24/17 [History] Cholecalciferol (D-3) [Vitamin D] 2,000 unit PO DAILY 11/24/17 [History] Cyanocobalamin (Vitamin B-12) [Vitamin B12] 1,000 mcg PO DAILY 11/24/17 [History ] Escitalopram [Lexapro] 20 mg PO DAILY 11/24/17 [History] Ferrous Sulfate 325 mg PO DAILY 11/24/17 [History] Furosemide [Lasix] 20 mg PO DAILY 11/24/17 [History] Gabapentin [Neurontin] 600 mg PO BID 11/24/17 [History] Glimepiride [Amaryl] 2 mg PO QAM 11/24/17 [History] Meclizine HCl [Verticalm] 25 mg PO DAILY PRN 11/24/17 [History] Montelukast [Singulair] 10 mg PO DAILY 11/24/17 [History] Nitroglycerin 0.2 mg TD DAILY 11/24/17 [History] Omeprazole [PriLOSEC] 40 mg PO DAILY 11/24/17 [History] Quetiapine Fumarate [Seroquel] 100 mg PO HS 11/24/17 [History] Calcitriol 0.5 mcg PO DAILY 04/20/18 [History] Magnesium Oxide [Magnesium] 400 mg PO BID 04/20/18 [History] Potassium Chloride [Klor-Con 10] 10 meq PO DAILY 04/20/18 [History] 3 Allergy/AdvReac Type Severity Reaction Status Date / Time naproxen Allergy Gastrointestinal Verified 04/19/18 19:02 Upset Penicillins [PCN] AdvReac Fever Verified 04/19/18 19:02 - Meds/Allergy Pre-op Review Medications Reviewed: Yes Allergies Reviewed: Yes Beta Blockers on Current Med List: No Anesthesia Results - Labs 04/23/18 04:00 04/23/18 04:32 Laboratory Tests 04/23/18 04/23/18 04:00 04:32 Hgb 7.8 L Hct 25.6 L Plt Count 304 Sodium 138 Potassium 3.3 L BUN 20 Creatinine 4.23 H - Imaging EKG: report reviewed (SR) Additional studies: ECHO 8-20 EF 65%, no pulm hth or pericardial effusion Anesthesia Exam Vital Signs/O2 Sat/Glucose, Most Current Temp Pulse Resp BP Pulse Ox 04/23/18 16:28 98.5 F 71 18 112/71 90 04/23/18 15:56 16 94 Height: 5'4 Weight: 252 lbs NPO (# of Hours): MN Pain Scale: 0 - HEENT Pupil (Motor): Pupils equal, EOMI Mallampati: III Teeth: Normal Oral Opening: Less than or equal to 3 - [employer] LOC: Oriented [employer] Motor: Normal RUE, Normal LUE, Normal RLE, Normal LLE, Normal Face [employer] Sensory: Normal: RUE, LUE, RLE, LLE, Face - Cardiac Rhythm: Regular Murmur: None JVD: No Carotid Bruit: No - Pulmonary Breath Sounds: bilateral Clear Respiratory Effort: Symmetrical Anesthesia Assess/Plan ASA Score: 4 (HTN, Chronic angina, ESRD DEE COPD DM MO) Modified [place] Scale for Level of Consciousness: Cooperative, oriented, and tranquil Anesthetic Plan: General Monitoring Plan: Standard Monitors Recovery Plan: PACU (Discussed GA, agrees to proceed)
--- NOTE | 2018-04-23 23:21 | Event Note ---
Date of Encounter: 04/23/18 Time of Encounter: 22:37 Alerted by SAMIA Gao that patient was refusing her scheduled DuoNeb breathing treatments. Respiratory therapists that she entered the room to breathing treatment and patient stated absolutely not due to blisters in her nose and mouth that she thinks caused with breathing treatments. Respiratory therapist stated patient is not currently exhibiting any SOB and is not in respiratory distress. Breathing treatments canceled for now. Followed up with SAMIA Gao to find out if patient was wearing her CPAP nightly to which she stated no. Patient had been refusing. She went to talk to patient to encourage CPAP which patient is now wearing tonight. Patient to be monitored closely overnight.
[2018-04-24] MEDS: MetroNIDAZOLE 500 MG/100 ML 500 MG/100 ML BAG IVPB SCH ×3 (00:14→16:36)
[2018-04-24] MEDS ORDERED: Regadenoson 0.4 MG/5 ML SYRINGE IVP ONE (06:09)
[2018-04-24 06:57] LABS: Hematocrit 26.1 % (35.3-44.9); Mean Corpuscular HGB Conc 30.7 g/dL (31.6-35.5); Mean Corpuscular Hemoglobin 24.4 pg (28.0-33.3); Mean Corpuscular Volume 79.6 fL (83.0-100.0); Mean Platelet Volume 9.5 fL (9.4-12.4); Platelet Count 300 K/mcL (140-400); Red Blood Count 3.28 M/mcL (3.82-4.97)
[2018-04-24 07:18] LABS: Calcium 8.3 mg/dL (8.6-10.3); Potassium 3.6 mEq/L (3.5-5.1)
[2018-04-24] MEDS: Insulin LISPRO 300 UNITS/3 ML VIAL SQ SCH ×4 (08:27→16:38)
[2018-04-24] MEDS ORDERED: *HR* Heparin 10,000 UNIT/10 ML VIAL IV PRN (08:38)
[2018-04-24] MEDS ORDERED: 0.9 % Sodium Chloride 250 ML IVC PRN (08:38)
--- NOTE | 2018-04-24 09:20 | Nephrology Progress Note ---
Date of Encounter: 04/24/18 Time of Encounter: 09:18 - Assessment and Plan (1) Peritoneal dialysis catheter dysfunction Current Visit: Yes Status: Acute OR scheduled for 1230 tomorrow. Npo after midnight tonight. Heparin on hold 2 hours before procedure. Primary team aware of recommendation to hold Heparin gtt before OR. Of note, there has not been any signs of peritonitis ie no symptoms and due to catheter problems have not been able to send fluids for cell count or culture Qualifiers: Encounter type: initial encounter Qualified Code(s): T85.611A - Breakdown ( mechanical) of intraperitoneal dialysis catheter, initial encounter (2) ESRD (end stage renal disease) on dialysis Current Visit: Yes Status: Chronic HD in progress. The plan is to resume PD urgent start with low volumes while supine. Pt is aware this might not be possible and in that case will need permcath for outpatient HD while new PD catheter site heals and then resume PD. (3) Hypokalemia Current Visit: Yes Status: Acute Corrected (4) Volume overload Current Visit: Yes Status: Acute Improving. Qualifiers: Qualified Code(s): E87.70 - Fluid overload, unspecified Subjective Principal diagnosis: malfunctioing PD cath Interval history: Pt seen and examined during HD, tolerating well. Objective - Vital Signs Vital signs: Vital Signs Temp Pulse Resp BP Pulse Ox 04/24/18 07:52 98.4 F 63 14 112/62 96 04/24/18 04:17 97.9 F 61 16 113/64 97 04/24/18 03:35 12 96 04/24/18 00:48 98.5 F 71 17 109/56 96 04/23/18 19:57 98.3 F 74 15 108/69 92 04/23/18 16:28 98.5 F 71 18 112/71 90 04/23/18 15:56 16 94 04/23/18 11:47 98.1 F 75 17 125/80 90 04/23/18 10:30 16 90 04/23/18 09:38 98.0 F 72 16 133/73 90 Intake and Output 04/23/18 04/24/18 04/24/18 23:59 07:59 15:59 Intake Total 110 / 110 Balance 110 / 110 Intake: IV Fluids 110 / 110 Heparin 25,000 UNIT/500 ML D5W 10 / 25,000 unit In 500 ml @ 8.4 UNIT/KG/HR 20.143 mls/hr IVC . Q24H [facility] Rx#:[id number] Flagyl Premix 500 MG/100 ML 500 100 / 100 mg In 100 ml @ 100 mls/hr IVPB Q8HR [facility] Rx#:[id number] Other: Blood Glucose* 122 113 - General Appearance General appearance: Present: well-developed, well-nourished EENT: Present: ATNC, hearing intact, vision intact Neck: Present: supple Cardiology: Present: edema (LUE pitting edema noted.), normal S1, normal S2 Dialysis Vascular Access: Venous Catheter (Tunneled Line, DRSG C/D/I.) Gastrointestinal: Present: normoactive bowel sounds, no tenderness, no guarding Integumentary: Present: no rash, warm and dry Neurologic: Present: alert and oriented x3 Psychiatric: Present: mood/affect appropriate, cooperative - Lab 04/24/18 06:24 04/24/18 06:24 Most recent lab results Calcium 8.3 mg/dL (8.6-10.3) L 04/24/18 06:24 Consult Discharge Plan - Plan Referrals: NONE,PCP [Primary Care Provider] -
[2018-04-24] MEDS ORDERED: Lidocaine -MPF 2% 2 ML VIAL ONE (10:08)
[2018-04-24] MEDS ORDERED: *HR* Midazolam HCl 2 MG/2 ML VIAL ONE (10:08)
[2018-04-24] MEDS ORDERED: Ondansetron 4 MG/2 ML VIAL ONE (10:08)
[2018-04-24] MEDS ORDERED: Dexamethasone 4 MG/ML VIAL ONE (10:08)
[2018-04-24] MEDS ORDERED: *HR* Propofol 200 MG/20 ML VIAL IVP ONE (10:09)
[2018-04-24] MEDS ORDERED: *HR* FentaNYL (PF) 100 MCG/2 ML VIAL ONE (10:09)
[2018-04-24] MEDS: Furosemide 40 MG/4 ML VIAL IVP SCH ×2 (12:00→17:03)
[2018-04-24] MEDS: Gabapentin 300 MG CAPSULE PO SCH ×2 (12:01→20:20)
[2018-04-24] MEDS: Loratadine 10 MG TABLET PO SCH (12:01)
[2018-04-24] MEDS: Cyanocobalamin (B-12) 1,000 MCG TABLET PO SCH (12:02)
[2018-04-24] MEDS: Cholecalciferol (D-3) 1,000 UNIT TABLET PO SCH (12:02)
[2018-04-24] MEDS: Nitroglycerin 0.2 MG PATCH.TD24 TD SCH (12:19)
[2018-04-24] MEDS ORDERED: *HR* Succinylcholine 200 MG/10 ML VIAL IVP ONE (12:20)
[2018-04-24] MEDS ORDERED: Lidocaine -MPF 4% 5 ML AMPUL ONE (12:20)
--- NOTE | 2018-04-24 12:22 | Cardiology Progress Note ---
Date of Encounter: 04/24/18 Time of Encounter: 12:20 Assessment and Plan (1) Pre-op evaluation Current Visit: Yes Status: Acute Preoperative evaluation requested prior to peritoneal dialysis catheter replacement. TTE to his recent normal LV function. No complete chest pain. No active heart failure symptoms. Patient appears to be an acceptable risk candidate for this low risk procedure. No further preoperative cardiac testing appears to be necessary. Please call with any questions or concerns. Discussion w patient/family: The assessment and plan as outlined above was discussed with the patient and/or family members who expressed understanding and agreement. All questions were answered. Thank you for involving us in the care of your patient. Please call with any questions. Subjective Principal diagnosis: malfunctioing PD cath Interval history: Repeat evaluation requested prior to PD catheter replacement. Patient seen in the hemodialysis unit. Patient resting supine without orthopnea. No complaints of chest pain or dyspnea reported. TTE 04/2018: LVEF 60-65%. Normal LV size and function. Mild diastolic dysfunction. Mildly dilated right ventricle with normal function. No evidence of pulmonary hypertension. No significant valvular dysfunction. Objective Vital Signs, Last 4 Hours Temp Resp BP 04/24/18 10:20 129/76 04/24/18 10:05 127/77 04/24/18 09:50 135/80 04/24/18 09:35 136/64 04/24/18 09:20 142/76 04/24/18 09:05 98.0 F 15 131/68 General: Conversant, No Apparent Distress HEENT: Atraumatic, Normocephaly, Mucus Membranes Moist Neck: No JVD Cardiac: Reg Rate and Rhythm, Normal S1 and S2, No Murmur Lungs: Normal Breath Sounds, No Wheeze, Rales, Rhonchi Neuro: Alert and responsive, No focal deficits noted Abdomen: Soft, Non-Tender, Other (Obese) Skin: No rashes noted on visualized skin Musculoskeletal: No Chest Wall Tenderness Extremities: No Clubbing, No Cyanosis, No Edema Results 04/24/18 06:24 04/24/18 06:24 Lab Results 04/24/18 04/24/18 06:24 06:24 WBC 8.1 Hgb 8.0 L Hct 26.1 L Plt Count 300 Sodium 139 Potassium 3.6 Chloride 100 Carbon Dioxide 27 BUN 27 H Creatinine 4.89 H Glucose 119 H Calcium 8.3 L - Imaging and Cardiology Echo: report reviewed - EKG Interpretation EKG results cardiology: personally reviewed Consult Discharge Plan - Plan Referrals: NONE,PCP [Primary Care Provider] -
[2018-04-24] MEDS: cefTRIAXone 2,000 MG in Water for inj. (sterile) 20 ML 20 ML IVP SCH (12:25)
[2018-04-24] MEDS ORDERED: Heparin 1,000 UNITS/500 mL 500 ML ONE (12:35)
[2018-04-24] MEDS ORDERED: *HR* Rocuronium Bromide 50 MG/5 ML VIAL ONE (13:20)
[2018-04-24] MEDS ORDERED: *HR* PHENYLEPHRINE 1,000 MCG/10 ML SYRINGE IVP ONE (13:29)
[2018-04-24] MEDS ORDERED: *HR* Promethazine 25 MG/ML VIAL IVP PRN (13:45)
[2018-04-24] MEDS ORDERED: *HR* OxyCODONE Immed Rel 5 MG TABLET PO PRN (13:45)
[2018-04-24] MEDS ORDERED: Ondansetron 4 MG/2 ML VIAL IVP ONE (13:45)
[2018-04-24] MEDS ORDERED: Neostigmine Methylsulfate 3 MG/3 ML SYRINGE ONE (13:49)
--- NOTE | 2018-04-24 14:30 | Anesthesia Evaluation Post Op ---
Date of Encounter: 04/24/18 Time of Encounter: 14:29 - Vital Signs Vital Signs: Vital Signs/O2 Sat, Most Current Temp Pulse Resp BP Pulse Ox 99.4 F 68 18 116/48 94 04/24/18 14:23 04/24/18 14:23 04/24/18 14:23 04/24/18 14:23 04/24/18 14:23 - Lungs Lungs: Clear Ascult./Percussion - Airway Airway: Non-obstructed - Cardiovascular Regular Rate - Mental Status Mental Status: Alert & Oriented, Answers Appropriately - Pain Pain Scale: 0 Pain Scale used: Numeric (1 - 10) - Nausea Vomiting Nausea Vomiting: Not Present - Hydration Hydration: Ice chips - Discharge PostOp Status: Transfer Patient to floor
--- NOTE | 2018-04-24 16:32 | Electrocardiograph Report ---
[address] [address] Test Date: 2018-04-21 Pat Name: Nallely Ramirez Department: 112 Room: 2A25 Gender: Outpatient Program Coordinator: ZABRINA : 1960 Requested By: Todd Rockwell Order Number: [id number] Reading MD: Evette Rodriguez Measurements Intervals [place] Rate: 73 P: 49 CT: 163 QRS: -13 QRSD: 89 T: 52 QT: 395 QTc: 420 Interpretive Statements SINUS RHYTHM NONSPECIFIC ST-WAVE ABNORMALITY Electronically Signed On 04-24-2018 16:31:07 EDT by Evette Rodriguez
[2018-04-24] MEDS ORDERED: *HR* Heparin 5,000 UNIT/ML VIAL IVP PRN (19:09)
[2018-04-24] MEDS ORDERED: Heparin 25,000 UNIT/500 ML D5W 25,000 UNIT/500 ML BAG IVC SCH (19:15)
--- NOTE | 2018-04-24 20:38 | Internal Med Progress Note ---
Hospitalist Progress Note - Encounter Date of Encounter: 04/24/18 Time of Encounter: 14:22 - Subjective Interval History: Patient was seen and examined bedside. In HD. To go for surgery afterward. - Exam Vitals: Temp Pulse Resp BP Pulse Ox 98.3 F 65 16 102/57 91 04/24/18 20:12 04/24/18 20:12 04/24/18 20:12 04/24/18 20:12 04/24/18 20:12 Exam: Vitals: Reviewed General: Obese white female in standard Clarke's position with notable respiratory discomfort and audible wheezes. Skin: Warm and supple. HEENT: Moist mucous membranes. No conjunctivae pallor. Neck: No lymphadenopathy. No JVD. Chest: Diminished thoracic expansion with diffuse wheezes, rhonchi and rales. Heart: Normal S1 & S2; rhythmic. Abdomen: Very distended but not tense, no focal areas of tenderness or peritoneal reaction elicited. Extremities: 2+ pitting edema of lower extremities. Neurological: Awake, alert and oriented to person, place and time. No focal deficits. Psych: Affect appropriate. - Assessment and Plan (1) Peritoneal dialysis catheter dysfunction Current Visit: Yes Status: Acute Assessment and Plan: Unclear reason for dysfunction. No overt mechanical anomalies noted on CT scan. Has had temporary dialysis catheter placed and has been getting dialysis through temp catheter. Surgery to replace/repair peritoneal dialysis catheter today afternoon. (2) ESRD (end stage renal disease) on dialysis Current Visit: Yes Status: Chronic Assessment and Plan: Has received dialysis via temp line. Surgery consulted to repair/ replace peritoneal dialysis access (3) VTE (venous thromboembolism) Current Visit: Yes Status: Acute Assessment and Plan: History of DVT. On apixaban at home but this has been held and switched to heparin drip for possible surgery (4) CAD (coronary artery disease) Current Visit: Yes Status: Chronic Assessment and Plan: Continue nitroglycerin patch daily. Being followed as an outpatient. (5) DEE (obstructive sleep apnea) Current Visit: Yes Status: Chronic Assessment and Plan: Start CPAP qhs. (6) COPD (chronic obstructive pulmonary disease) Current Visit: Yes Status: Chronic Assessment and Plan: Will place on duonebs q4hrs for acute exacerbation. Supplemental oxygen as needed. (7) Anemia in chronic kidney disease Current Visit: Yes Status: Chronic Assessment and Plan: Stable. Place on ferrous sulfate supplementation. (8) Tobacco dependence Current Visit: Yes Status: Chronic Assessment and Plan: Continues to smoke despite her comorbidities. 5 minutes were spent counseling. (9) Diabetes Current Visit: Yes Status: Chronic Assessment and Plan: Will hold oral medications and place on insulin sliding scale for now. (10) Obesity Current Visit: Yes Status: Acute Assessment and Plan: Will benefit from photogrammetrist consultation. Current weight is likely exacerbated by fluid retention as well and is not her dry weight. (11) Hypokalemia Current Visit: Yes Status: Acute Assessment and Plan: resolved (12) Shortness of breath Current Visit: Yes Status: Acute Assessment and Plan: Likely multifactorial having a fluid overload state from non-dialysis leading to pulmonary edema, exacerbation of COPD with overlap of DEE. -c/w duoneb, also on renal replacement therapy. (13) Peritonitis Current Visit: Yes Status: Acute Assessment and Plan: Secondary bacterial peritonitis. Con ceftriaxone. (14) Sepsis Current Visit: Yes Status: Acute Assessment and Plan: Sepsis likely secondary to secondary bacterial peritonitis. Patient has mal functioning peritoneal dialysis access, and came in with fever and leukocytosis. Continue ceftriaxone and metronidazole. Now stable. BG NGTD. 5-7 day course of antibiotics total pending blood cultures (15) NSTEMI (non-ST elevated myocardial infarction) Current Visit: Yes Status: Acute Assessment and Plan: On heparin drip. Echo came back WNL. Has been seen by cardiology who recommend stress test. Patient says she would prefer to have stress test done outpatient. Cardiology consulted and appreciate recs. DVT Prophylaxis: on heparin drip - Time Spent with Patient Total time spent is greater than 50% in coordination of care (as documented) at patient's floor/unit and/or counseling patient: Internal Medicine: Result - Labs CBC & Chem 7: 04/25/18 04:09 04/25/18 04:09 Labs: Short CBC 04/24/18 Range/Units 06:24 WBC 8.1 (4.3-11.1) K/mcL Hgb 8.0 L (11.5-15.4) g/dL Hct 26.1 L (35.3-44.9) % Plt Count 300 (140-400) K/mcL BMP 04/24/18 06:24 Sodium 139 Potassium 3.6 Chloride 100 Carbon Dioxide 27 BUN 27 H Creatinine 4.89 H Glucose 119 H Calcium 8.3 L - ABG Interpretation ABG results: PT/INR, D-dimer PT 14.6 Seconds (9.4-12.1) H 04/21/18 18:30 Consult Discharge Plan - Plan Referrals: NONE,PCP [Primary Care Provider] - (1) Peritoneal dialysis catheter dysfunction Qualifiers: Encounter type: initial encounter Qualified Code(s): T85.611A - Breakdown ( mechanical) of intraperitoneal dialysis catheter, initial encounter (4) CAD (coronary artery disease) Qualifiers: Coronary Disease-Associated Artery/Lesion type: [place] artery [place] vs. transplanted heart: [place] heart Associated angina: with stable angina Qualified Code(s): I25.118 - Atherosclerotic heart disease of [place] coronary artery with other forms of angina pectoris (6) COPD (chronic obstructive pulmonary disease) Qualifiers: COPD type: COPD with acute exacerbation Qualified Code(s): J44.1 - Chronic obstructive pulmonary disease with (acute) exacerbation (7) Anemia in chronic kidney disease Qualifiers: Chronic kidney disease stage: on chronic dialysis Qualified Code(s): N18.6 - End stage renal disease; D63.1 - Anemia in chronic kidney disease; Z99.2 - Dependence on renal dialysis (9) Diabetes Qualifiers: Diabetes mellitus type: type 2 Diabetes mellitus longterm insulin use: with terminal gauger use Diabetes mellitus complication status: with kidney complications Chronic kidney disease stage: on chronic dialysis (10) Obesity Qualifiers: Obesity classification: adult class 3 (BMI >= 40) Serious obesity comorbidity presence: with serious comorbidity Body mass index: BMI 45.0-49.9
[2018-04-25 04:34] LABS: Hemoglobin 8.3 g/dL (11.5-15.4); Mean Corpuscular HGB Conc 30.7 g/dL (31.6-35.5); Mean Corpuscular Hemoglobin 24.4 pg (28.0-33.3); Mean Corpuscular Volume 79.4 fL (83.0-100.0); Mean Platelet Volume 9.7 fL (9.4-12.4); Platelet Count 275 K/mcL (140-400); Red Cell Distribution Width 15.9 % (11.5-14.5)
[2018-04-25 05:01] LABS: Calcium 8.4 mg/dL (8.6-10.3); Potassium 4.2 mEq/L (3.5-5.1)
[2018-04-25] MEDS: MetroNIDAZOLE 500 MG/100 ML 500 MG/100 ML BAG IVPB SCH (08:12)
[2018-04-25] MEDS: Insulin LISPRO 300 UNITS/3 ML VIAL SQ SCH ×4 (08:12→16:43)
[2018-04-25] MEDS ORDERED: Clindamycin 600 MG/50 ML 600 MG/50 ML IV.SOLN IVPB ONE (09:26)
[2018-04-25] MEDS ORDERED: *HR* FentaNYL (PF) 100 MCG/2 ML VIAL IVP ONE (09:26)
[2018-04-25] MEDS ORDERED: *HR* Midazolam HCl 2 MG/2 ML VIAL IVP ONE (09:26)
[2018-04-25] MEDS ORDERED: Heparin 1,000 UNITS/500 mL 500 ML ONE (09:31)
--- NOTE | 2018-04-25 09:31 | Nephrology Progress Note ---
Date of Encounter: 04/25/18 Time of Encounter: 09:27 - Assessment and Plan (1) Peritoneal dialysis catheter dysfunction Current Visit: Yes Status: Acute PD cath removed and was not able to be replaced in OR. Qualifiers: Encounter type: initial encounter Qualified Code(s): T85.611A - Breakdown ( mechanical) of intraperitoneal dialysis catheter, initial encounter (2) ESRD (end stage renal disease) on dialysis Current Visit: Yes Status: Chronic Will transition to HD at this time. Pt is NPO for Tunneled Line placement today. Social service consult is in for chair time. Avoid nephrotoxins and renal dose all medications. (3) Hypokalemia Current Visit: Yes Status: Acute Corrected (4) Volume overload Current Visit: Yes Status: Acute Improving. Transition to HD. Qualifiers: Qualified Code(s): E87.70 - Fluid overload, unspecified Subjective Principal diagnosis: malfunctioing PD cath Interval history: Pt seen and examined doing well. Objective - Vital Signs Vital signs: Vital Signs Temp Pulse Resp BP Pulse Ox 04/25/18 07:25 97.5 F L 60 15 117/77 96 04/25/18 04:56 97.8 F 62 16 114/66 93 04/25/18 00:25 98.2 F 64 15 125/78 95 04/24/18 20:12 98.3 F 65 16 102/57 91 04/24/18 16:33 98.0 F 62 16 110/55 95 04/24/18 15:19 62 16 101/54 93 04/24/18 14:34 98.3 F 67 18 102/51 94 04/24/18 14:23 99.4 F 68 18 116/48 94 04/24/18 14:13 99.7 F H 75 20 117/64 90 04/24/18 14:03 99.8 F H 87 24 126/52 94 04/24/18 12:30 99.0 F 18 134/72 04/24/18 12:05 138/79 04/24/18 11:50 129/74 04/24/18 11:35 131/79 04/24/18 11:20 144/77 04/24/18 11:05 140/68 04/24/18 10:50 135/77 04/24/18 10:35 137/77 08/21/18 10:20 129/76 04/24/18 10:05 127/77 04/24/18 09:50 135/80 04/24/18 09:35 136/64 Intake and Output 04/24/18 04/25/18 04/25/18 23:59 07:59 15:59 Intake Total 240 / 240 200 / 200 Balance 240 / 240 200 / 200 Intake: IV Fluids 200 / 200 Heparin 25,000 UNIT/500 ML D5W 200 / 200 25,000 unit In 500 ml @ 8.5 UNIT/KG/HR 19.494 mls/hr IVC . Q24H [facility] Rx#:[id number] Oral 240 / 240 Other: # Voids 1 # Bowel Movements 1 Blood Glucose* 174 137 - General Appearance General appearance: Present: well-developed, well-nourished EENT: Present: ATNC, hearing intact, vision intact Neck: Present: supple Respiratory: Present: clear Cardiology: Present: edema (LUE generalized edema noted.), normal S1, normal S2 Dialysis Vascular Access: Venous Catheter (Tunneled Line Drsg C/D/I) Gastrointestinal: Present: normoactive bowel sounds, no tenderness, no guarding Integumentary: Present: no rash, warm and dry Neurologic: Present: alert and oriented x3 Psychiatric: Present: mood/affect appropriate, cooperative - Lab 04/25/18 04:09 04/25/18 04:09 Most recent lab results Calcium 8.4 mg/dL (8.6-10.3) L 04/25/18 04:09 Consult Discharge Plan - Plan Referrals: NONE,PCP [Primary Care Provider] -
[2018-04-25] MEDS ORDERED: 0.9 % Sodium Chloride 500 ML ONE (10:50)
[2018-04-25] MEDS ORDERED: *HR* Heparin 5,000 UNIT/ML VIAL ONE (11:16)
--- NOTE | 2018-04-25 11:57 | Internal Med Progress Note ---
Hospitalist Progress Note - Encounter Date of Encounter: 04/25/18 Time of Encounter: 11:57 - Subjective Interval History: Patient was seen and examined bedside. Plan for HD today. Denies new complains. - Exam Vitals: Temp Pulse Resp BP Pulse Ox 97.5 F L 62 15 114/61 94 04/25/18 07:25 04/25/18 11:22 04/25/18 07:25 04/25/18 11:22 04/25/18 11:22 Exam: Vitals: Reviewed General: Obese white female in standard Clarke's position with notable respiratory discomfort and audible wheezes. Skin: Warm and supple. HEENT: Moist mucous membranes. No conjunctivae pallor. Neck: No lymphadenopathy. No JVD. Chest: Diminished thoracic expansion with diffuse wheezes, rhonchi and rales. Heart: Normal S1 & S2; rhythmic. Abdomen: Very distended but not tense, no focal areas of tenderness or peritoneal reaction elicited. Extremities: 2+ pitting edema of lower extremities. Neurological: Awake, alert and oriented to person, place and time. No focal deficits. Psych: Affect appropriate. - Assessment and Plan (1) Peritoneal dialysis catheter dysfunction Current Visit: Yes Status: Acute Assessment and Plan: Unclear reason for dysfunction. No overt mechanical anomalies noted on CT scan. Has had temporary dialysis catheter placed and has been getting dialysis through temp catheter. Unsuccessful replace/repair of peritoneal dialysis catheter yesterday. s/p tunneled line placement Will discharge after setup of outpatient dialysis chair time. (2) ESRD (end stage renal disease) on dialysis Current Visit: Yes Status: Chronic Assessment and Plan: Has received dialysis via temp line. s/p tunnel dialysis catheter. Failed repair /replacement of PD catheter. (3) VTE (venous thromboembolism) Current Visit: Yes Status: Acute Assessment and Plan: History of DVT. Will switch heparin to apixaban. (4) CAD (coronary artery disease) Current Visit: Yes Status: Chronic Assessment and Plan: Continue nitroglycerin patch daily. Being followed as an outpatient. (5) DEE (obstructive sleep apnea) Current Visit: Yes Status: Chronic Assessment and Plan: Start CPAP qhs. (6) COPD (chronic obstructive pulmonary disease) Current Visit: Yes Status: Chronic Assessment and Plan: Will place on duonebs q4hrs for acute exacerbation. Supplemental oxygen as needed. (7) Anemia in chronic kidney disease Current Visit: Yes Status: Chronic Assessment and Plan: Stable. Place on ferrous sulfate supplementation. (8) Diabetes Current Visit: Yes Status: Chronic Assessment and Plan: Will hold oral medications and place on insulin sliding scale for now. (9) Obesity Current Visit: Yes Status: Acute Assessment and Plan: Counselled on nutrition. Current weight is likely exacerbated by fluid retention as well and is not her dry weight. (10) Hypokalemia Current Visit: Yes Status: Resolved (11) Shortness of breath Current Visit: Yes Status: Resolved (12) Peritonitis Current Visit: Yes Status: Acute Assessment and Plan: Secondary bacterial peritonitis. Continue ceftriaxone and metronidazole. (13) Sepsis Current Visit: Yes Status: Resolved Assessment and Plan: Sepsis likely secondary to secondary bacterial peritonitis. Patient had mal functioning peritoneal dialysis access, and came in with fever and leukocytosis. Continue ceftriaxone and metronidazole. Now stable. BG NGTD. 5-7 day course of antibiotics total (14) NSTEMI (non-ST elevated myocardial infarction) Current Visit: Yes Status: Acute Assessment and Plan: Will dc hearin. Echo came back WNL. Has been seen by cardiology who recommend stress test. Patient says she would prefer to have stress test done outpatient. Cardiology consulted and appreciate recs. - Time Spent with Patient Total time spent is greater than 50% in coordination of care (as documented) at patient's floor/unit and/or counseling patient: Internal Medicine: Result - Labs CBC & Chem 7: 04/25/18 04:09 04/25/18 04:09 Labs: Short CBC 04/25/18 Range/Units 04:09 WBC 12.3 H D (4.3-11.1) K/mcL Hgb 8.3 L (11.5-15.4) g/dL Hct 27.0 L (35.3-44.9) % Plt Count 275 (140-400) K/mcL BMP 04/25/18 04:09 Sodium 134 L Potassium 4.2 Chloride 98 Carbon Dioxide 26 BUN 19 Creatinine 3.45 H Glucose 165 H Calcium 8.4 L - ABG Interpretation ABG results: PT/INR, D-dimer PT 14.6 Seconds (9.4-12.1) H 04/21/18 18:30 - Impressions Impressions Guidance Ultrasound 04/25/18 00:00 IMPRESSION: Successful ultrasound and fluoroscopy guided tunneled catheter placement . D/ / Kevin Corley MD / Kevin Corley MD Interpreting Provider: Kevin Corley MD Insertion Non-Tunneled Catheter 04/25/18 00:00 IMPRESSION: Successful ultrasound and fluoroscopy guided tunneled catheter placement . D/ / Kevin Corley MD / Kevin Corley MD Interpreting Provider: Kevin Corley MD Consult Discharge Plan - Plan Referrals: NONE,PCP [Primary Care Provider] - (1) Peritoneal dialysis catheter dysfunction Qualifiers: Encounter type: initial encounter Qualified Code(s): T85.611A - Breakdown ( mechanical) of intraperitoneal dialysis catheter, initial encounter (4) CAD (coronary artery disease) Qualifiers: Coronary Disease-Associated Artery/Lesion type: [place] artery [place] vs. transplanted heart: [place] heart Associated angina: with stable angina Qualified Code(s): I25.118 - Atherosclerotic heart disease of [place] coronary artery with other forms of angina pectoris (6) COPD (chronic obstructive pulmonary disease) Qualifiers: COPD type: COPD with acute exacerbation Qualified Code(s): J44.1 - Chronic obstructive pulmonary disease with (acute) exacerbation (7) Anemia in chronic kidney disease Qualifiers: Chronic kidney disease stage: on chronic dialysis Qualified Code(s): N18.6 - End stage renal disease; D63.1 - Anemia in chronic kidney disease; Z99.2 - Dependence on renal dialysis (8) Diabetes Qualifiers: Diabetes mellitus type: type 2 Diabetes mellitus snf insulin use: with dedicated intermodal truck driver use Diabetes mellitus complication status: with kidney complications Chronic kidney disease stage: on chronic dialysis (9) Obesity Qualifiers: Obesity classification: adult class 3 (BMI >= 40) Serious obesity comorbidity presence: with serious comorbidity Body mass index: BMI 45.0-49.9
[2018-04-25] MEDS: Cholecalciferol (D-3) 1,000 UNIT TABLET PO SCH (12:30)
[2018-04-25] MEDS: Furosemide 40 MG/4 ML VIAL IVP SCH ×2 (12:30→16:43)
[2018-04-25] MEDS: Gabapentin 300 MG CAPSULE PO SCH ×2 (12:30→20:36)
[2018-04-25] MEDS: metroNIDAZOLE 500 MG TABLET PO SCH ×3 (12:30→20:35)
[2018-04-25] MEDS: Cyanocobalamin (B-12) 1,000 MCG TABLET PO SCH (12:30)
[2018-04-25] MEDS: Loratadine 10 MG TABLET PO SCH (12:30)
[2018-04-25] MEDS: Nitroglycerin 0.2 MG PATCH.TD24 TD SCH (12:30)
[2018-04-25] MEDS: cefTRIAXone 2,000 MG in Water for inj. (sterile) 20 ML 20 ML IVP SCH (12:31)
--- NOTE | 2018-04-25 14:30 | General Surgery Progress Note ---
Date of Encounter: 04/25/18 Time of Encounter: 14:00 - Assessment and Plan (1) Peritoneal dialysis catheter dysfunction Current Visit: Yes Status: Acute POD #1 PD catheter removal Incision care- may shower and cleanse incision soap and water daily, pat dry. No lifting/pushing/pulling greater wilson 20 lb. X [address] able to react in the care safely F/U in the surgery office in 2 weeks (scheduled) Qualifiers: Encounter type: initial encounter Qualified Code(s): T85.611A - Breakdown ( mechanical) of intraperitoneal dialysis catheter, initial encounter (2) ESRD (end stage renal disease) on dialysis Current Visit: Yes Status: Chronic Nephrology following HD catheter placed Maintain hemodialysis for now and will re-evaluate in the future for replacement of PD catheter Subjective Patient reports: no new complaints, still having pain (post-surgical- controlled ), tolerating a regular diet, flatus, afebrile Objective Vital Signs - Last 8 Hours Temp Pulse Resp BP Pulse Ox 04/25/18 11:22 62 114/61 94 04/25/18 11:17 57 106/64 93 04/25/18 07:25 97.5 F L 60 15 117/77 96 Intake and Output 04/24/18 04/25/18 04/25/18 23:59 07:59 15:59 Intake Total 240 / 240 200 / 200 Balance 240 / 240 200 / 200 Intake: IV Fluids 200 / 200 Heparin 25,000 UNIT/500 ML D5W 200 / 200 25,000 unit In 500 ml @ 8.5 UNIT/KG/HR 19.494 mls/hr IVC . Q24H SHWETA Rx#:[id number] Oral 240 / 240 Other: # Voids 1 # Bowel Movements 1 Blood Glucose* 174 137 119 - General physical appearance well developed, well nourished, no distress, chronically ill - Eyes normal ocular movement - ENT normal mucosa, atraumatic, normocephalic - Neck Neck exam: trachea midline - Respiratory normal expansion, normal respiratory effort, clear to auscultation - Cardiovascular Cardiovascular exam: Present: RRR - Abdomen Abdomen: Present: bowel sounds present, soft, tender (minimal, expected tenderness) - Incision Incision: Present: clean and dry, intact - Neurologic CN 2-12 grossly intact - Psychiatric oriented to time, oriented to person, oriented to place, speech is normal, memory intact - Labs 04/25/18 04:09 04/25/18 04:09 Diabetes panel 04/25/18 Range/Units 04:09 Sodium 134 L (136-145) mEq/L Potassium 4.2 (3.5-5.1) mEq/L Chloride 98 (98-107) mEq/L Carbon Dioxide 26 (23-29) mEq/L BUN 19 (6-20) mg/dL Creatinine 3.45 H (0.60-1.20) mg/dL Glucose 165 H (70-105) mg/dL Calcium 8.4 L (8.6-10.3) mg/dL Calcium panel 04/25/18 Range/Units 04:09 Calcium 8.4 L (8.6-10.3) mg/dL Pituitary panel 04/25/18 Range/Units 04:09 Sodium 134 L (136-145) mEq/L Potassium 4.2 (3.5-5.1) mEq/L Chloride 98 (98-107) mEq/L Carbon Dioxide 26 (23-29) mEq/L BUN 19 (6-20) mg/dL Creatinine 3.45 H (0.60-1.20) mg/dL Glucose 165 H (70-105) mg/dL Calcium 8.4 L (8.6-10.3) mg/dL Adrenal panel 04/25/18 Range/Units 04:09 Sodium 134 L (136-145) mEq/L Potassium 4.2 (3.5-5.1) mEq/L Chloride 98 (98-107) mEq/L Carbon Dioxide 26 (23-29) mEq/L BUN 19 (6-20) mg/dL Creatinine 3.45 H (0.60-1.20) mg/dL Glucose 165 H (70-105) mg/dL Calcium 8.4 L (8.6-10.3) mg/dL Consult Discharge Plan - Plan Additional Instructions: #1 may shower, no tub bath for 2 weeks #2 wash incisions with soap and water and pat dry daily #3 no lifting, pushing, pulling more than 20 pounds for the next 2 weeks #4 no driving until off narcotics for 24 hours and able to safely react in the car #5 may climb stairs Referrals: NONE,PCP [Primary Care Provider] - Andrea Sy DO [Partnered Physician] - 05/08/18 9:10 am (surgery follow-up)
--- NOTE | 2018-04-25 17:22 | Operative Note ---
Date of procedure: 04/24/18 Pre-op diagnosis: End-stage renal disease Post-op diagnosis: same Procedure: Removal of peritoneal dialysis catheter and diagnostic laparoscopy Anesthesia: DODIE Surgeon: Andrea Sy Was there an physiotherapist's assistant present: No Estimated blood loss (cc): 5 Specimen: 0 Condition: stable Disposition: floor Procedure in Detail: After informed consent, the patient was taken to the operating room placed in a supine position. After adequate sedation and anesthesia the abdomen was prepped and draped. A 5 mm incision was made above the umbilicus. Under direct visualization a camera was placed in the abdomen. A pneumoperitoneum was created. Her multiple adhesions along the midline and to the pelvis. The omentum and small bowel were adherent to the abdominal wall encasing the catheter which had created its dysfunction. Due to the dense adhesions and made a decision to remove the catheter not replace it. Counter incisions were made over the Edson cuffs and it was removed. Once removed the incisions were closed with 3-0 Vicryl suture and Dermabond.
[2018-04-25] MEDS: Apixaban 5 MG TABLET PO SCH (20:36)
[2018-04-25] MEDS: Magnesium Oxide 400 MG TABLET PO SCH (20:36)
[2018-04-25] MEDS ORDERED: Insulin LISPRO 300 UNITS/3 ML VIAL SQ SCH (21:00)
[2018-04-26 07:04] LABS: Hematocrit 25.3 % (35.3-44.9); Hemoglobin 7.7 g/dL (11.5-15.4); Mean Corpuscular HGB Conc 30.4 g/dL (31.6-35.5); Mean Corpuscular Hemoglobin 24.4 pg (28.0-33.3); Mean Corpuscular Volume 80.1 fL (83.0-100.0); Platelet Count 282 K/mcL (140-400); Red Blood Count 3.16 M/mcL (3.82-4.97)
[2018-04-26 07:20] LABS: Calcium 8.3 mg/dL (8.6-10.3); Potassium 3.7 mEq/L (3.5-5.1)
[2018-04-26] MEDS ORDERED: 0.9 % Sodium Chloride 1,000 ML ONE (07:36)
[2018-04-26] MEDS: Insulin LISPRO 300 UNITS/3 ML VIAL SQ SCH ×2 (08:52→12:10)
[2018-04-26] MEDS ORDERED: *HR* Heparin 10,000 UNIT/10 ML VIAL IV PRN (08:58)
[2018-04-26] MEDS ORDERED: 0.9 % Sodium Chloride 250 ML IVC PRN (08:58)
[2018-04-26] MEDS ORDERED: 0.9 % Sodium Chloride 1,000 ML PRIME SCH (09:00)
--- NOTE | 2018-04-26 09:29 | Nephrology Progress Note ---
Date of Encounter: 04/26/18 Time of Encounter: 09:27 - Assessment and Plan (1) Peritoneal dialysis catheter dysfunction Current Visit: Yes Status: Acute PD cath removed and was not able to be replaced in OR. Kerrie Blount CNP mentioned the patient following up in office in a few weeks to determine if PD cath can be replaced. Qualifiers: Encounter type: initial encounter Qualified Code(s): T85.611A - Breakdown ( mechanical) of intraperitoneal dialysis catheter, initial encounter (2) ESRD (end stage renal disease) on dialysis Current Visit: Yes Status: Chronic Will transition to HD at this time. Tunneled Line placed yesterday. HD running well today. Social service confirmed she does have an outpatient chair time. She may go home from a renal standpoint. Avoid nephrotoxins and renal dose all medications. (3) Hypokalemia Current Visit: Yes Status: Resolved Corrected (4) Volume overload Current Visit: Yes Status: Acute Appears resolving. Qualifiers: Qualified Code(s): E87.70 - Fluid overload, unspecified Subjective Principal diagnosis: malfunctioing PD cath Interval history: Pt seen and examined during HD, doing well. Objective - Vital Signs Vital signs: Vital Signs Temp Pulse Resp BP Pulse Ox 04/26/18 07:40 98.1 F 68 18 97/60 96 04/26/18 04:09 98 F 63 18 95/57 93 04/25/18 23:19 98.3 F 65 18 92/55 90 04/25/18 19:45 98.1 F 67 18 93/57 93 04/25/18 11:22 62 114/61 94 04/25/18 11:17 57 106/64 93 Intake and Output 04/25/18 04/26/18 04/26/18 23:59 07:59 15:59 Intake Total 200 / 200 Balance 200 / 200 Intake: Oral 200 / 200 Other: Meal Dinner Percent of Meal Consumed 100% Weight 114.98 kg Blood Glucose* 169 95 - General Appearance General appearance: Present: well-developed, well-nourished EENT: Present: ATNC, hearing intact, vision intact Neck: Present: supple Respiratory: Present: clear Cardiology: Present: no edema, normal S1, normal S2 Dialysis Vascular Access: Venous Catheter (Tunneled Line, drsg c/d/i) Gastrointestinal: Present: normoactive bowel sounds, no tenderness, no guarding Integumentary: Present: no rash, warm and dry Neurologic: Present: alert and oriented x3 Psychiatric: Present: mood/affect appropriate, cooperative - Lab 04/26/18 06:07 04/26/18 06:07 Most recent lab results Calcium 8.3 mg/dL (8.6-10.3) L 04/26/18 06:07 Consult Discharge Plan - Plan Instructions: Hemodialysis (DC), Dialysis Diet (DC), End-Stage Kidney Disease ( DC) Additional Instructions: #1 may shower, no tub bath for 2 weeks #2 wash incisions with soap and water and pat dry daily #3 no lifting, pushing, pulling more than 20 pounds for the next 2 weeks #4 no driving until off narcotics for 24 hours and able to safely react in the car #5 may climb stairs Referrals: Andrea Sy DO [Partnered Physician] - 05/08/18 9:10 am (surgery follow-up) Jose Alejandro Mcnulty MD [Non-Partnered Physician] - 05/02/18 11:00 am (Please follow up as schedule...) NONE,PCP [Primary Care Provider] -
[2018-04-26] MEDS: Furosemide 40 MG/4 ML VIAL IVP SCH (10:33)
[2018-04-26] MEDS: Nitroglycerin 0.2 MG PATCH.TD24 TD SCH (10:34)
[2018-04-26] MEDS: metroNIDAZOLE 500 MG TABLET PO SCH (10:43)
[2018-04-26] MEDS: cefTRIAXone 2,000 MG in Water for inj. (sterile) 20 ML 20 ML IVP SCH (10:44)
[2018-04-26] MEDS: Magnesium Oxide 400 MG TABLET PO SCH (10:45)
[2018-04-26] MEDS: Apixaban 5 MG TABLET PO SCH (10:45)
[2018-04-26] MEDS: Cyanocobalamin (B-12) 1,000 MCG TABLET PO SCH (10:45)
[2018-04-26] MEDS: Gabapentin 300 MG CAPSULE PO SCH (10:45)
[2018-04-26] MEDS: Loratadine 10 MG TABLET PO SCH (10:46)
--- NOTE | 2018-04-26 11:31 | Discharge Summary ---
- NOTES TO OUTPATIENT PROVIDER Notes to Outpatient Provider: Patient to follow-up for regular hemodialysis. Outpatient feasibility PD catheter placement to be determining few weeks. Date of Encounter: 04/26/18 Time of Encounter: 11:17 - Discharge Diagnosis (1) Peritoneal dialysis catheter dysfunction Priority: Primary Status: Acute Qualifiers: Encounter type: initial encounter Qualified Code(s): T85.611A - Breakdown ( mechanical) of intraperitoneal dialysis catheter, initial encounter (2) ESRD (end stage renal disease) on dialysis Priority: Secondary Status: Chronic (3) VTE (venous thromboembolism) Priority: Secondary Status: Acute (4) CAD (coronary artery disease) Priority: Secondary Status: Chronic Qualifiers: Coronary Disease-Associated Artery/Lesion type: [place] artery [place] vs. transplanted heart: [place] heart Associated angina: with stable angina Qualified Code(s): I25.118 - Atherosclerotic heart disease of [place] coronary artery with other forms of angina pectoris (5) DEE (obstructive sleep apnea) Priority: Secondary Status: Chronic (6) COPD (chronic obstructive pulmonary disease) Priority: Secondary Status: Chronic Qualifiers: COPD type: COPD with acute exacerbation Qualified Code(s): J44.1 - Chronic obstructive pulmonary disease with (acute) exacerbation (7) Anemia in chronic kidney disease Priority: Secondary Status: Chronic Qualifiers: Chronic kidney disease stage: on chronic dialysis Qualified Code(s): N18.6 - End stage renal disease; D63.1 - Anemia in chronic kidney disease; Z99.2 - Dependence on renal dialysis (8) Diabetes Priority: Secondary Status: Chronic Qualifiers: Diabetes mellitus type: type 2 Diabetes mellitus prison insulin use: with prison use Diabetes mellitus complication status: with kidney complications Chronic kidney disease stage: on chronic dialysis Qualified Code(s): E11.22 - Type 2 diabetes mellitus with diabetic chronic kidney disease ; N18.6 - End stage renal disease; Z79.4 - FDC (current) use of insulin; Z99.2 - Dependence on renal dialysis (9) Obesity Priority: Secondary Status: Acute Qualifiers: Obesity classification: adult class 3 (BMI >= 40) Serious obesity comorbidity presence: with serious comorbidity Body mass index: BMI 45.0-49.9 Qualified Code(s): E66.01 - Morbid (severe) obesity due to excess calories; Z68.42 - Body mass index (BMI) 45.0-49.9, adult (10) Hypokalemia Priority: Secondary Status: Resolved (11) Shortness of breath Priority: Secondary Status: Resolved (12) Peritonitis Priority: Secondary Status: Acute (13) Sepsis Priority: Secondary Status: Resolved Qualifiers: Sepsis type: sepsis due to unspecified organism Qualified Code(s): A41.9 - Sepsis, unspecified organism (14) NSTEMI (non-ST elevated myocardial infarction) Priority: Secondary Status: Acute Hospital course: Ms. Ramirez is a 57 year old female DVT CAD asthma/COPD obstructive sleep apnea and end-stage renal disease was sent from nephrology clinic because of nonfunctioning peritoneal access. Patient had signs of peritonitis and sepsis. She was started on empiric antibiotics nephrology was consulted. Patient ultimately needed PD catheter removal and surgery for repair and replacement was unsuccessful. She had temporary IJ catheter placed through which she was dialyzed later on she had a tunneled catheter placement. Her treatment for peritonitis with ceftriaxone and metronidazole completed. Patient had low- grade data troponins which were most likely due to poor renal clearance and not due to N-STEMI. Cardiology recommended stress test however patient wanted to do it as outpatient. She was discharged once chair time was available. She will be followed outpatient and in the few weeks would be reevaluated if PD catheter can be placed. - Time Spent with Patient Total time spent providing and/or coordinating discharge services: Greater than 30 minutes - Discharge Medications Home Medications: Albuterol Neb [Proventil Neb] 2.5 mg IH Q4H PRN 11/24/17 [History] Albuterol Sulfate [Albuterol Inhaler] 2 puff IH Q4H PRN 11/24/17 [History] Apixaban [Eliquis] 2.5 mg PO BID 11/24/17 [History] Cetirizine HCl 10 mg PO DAILY 11/24/17 [History] Cholecalciferol (D-3) [Vitamin D] 2,000 unit PO DAILY 11/24/17 [History] Cyanocobalamin (Vitamin B-12) [Vitamin B12] 1,000 mcg PO DAILY 11/24/17 [History ] Escitalopram [Lexapro] 20 mg PO DAILY 11/24/17 [History] Ferrous Sulfate 325 mg PO DAILY 11/24/17 [History] Furosemide [Lasix] 20 mg PO DAILY 11/24/17 [History] Gabapentin [Neurontin] 600 mg PO BID 11/24/17 [History] Glimepiride [Amaryl] 2 mg PO QAM 11/24/17 [History] Meclizine HCl [Verticalm] 25 mg PO DAILY PRN 11/24/17 [History] Montelukast [Singulair] 10 mg PO DAILY 11/24/17 [History] Nitroglycerin 0.2 mg TD DAILY 11/24/17 [History] Omeprazole [PriLOSEC] 40 mg PO DAILY 11/24/17 [History] Quetiapine Fumarate [Seroquel] 100 mg PO HS 11/24/17 [History] Calcitriol 0.5 mcg PO DAILY 04/20/18 [History] Magnesium Oxide [Magnesium] 400 mg PO BID 04/20/18 [History] Potassium Chloride [Klor-Con 10] 10 meq PO DAILY 04/20/18 [History] Allergies/Adverse Reactions: 3 Allergy/AdvReac Type Severity Reaction Status Date / Time naproxen Allergy Gastrointestinal Verified 04/19/18 19:02 Upset Penicillins [PCN] AdvReac Fever Verified 04/19/18 19:02 Date of admission: 04/20/18 00:41 Primary care physician: PCP NONE Consults: 04/20/18 13:06 Consult to Interventional Radiology [CONS] Stat Consulting Provider: Radiology Interventional Cols Reason for Consult: temp IJ HD catheter placement Call Completed: No 04/20/18 15:45 Consult to Dialysis [CONS] ONCE 04/21/18 08:00 Consult to Dialysis [CONS] ONCE 04/21/18 10:41 Consult to Cardiology [CONS] Routine Comment: Consulting Provider: Cardiology Anu Reason for Consult: chest pain r/o [facility] Call Completed: Yes 04/23/18 06:14 Consult to Surgery [CONS] Routine Consulting Provider: Surgery Anu Surgical Reason for Consult: Dr Sy for PD catheter malfunction Call Completed: Yes 04/24/18 08:45 Consult to Dialysis [CONS] ONCE 04/24/18 16:25 Consult to Interventional Radiology [CONS] Routine Consulting Provider: Radiology Interventional Cols Reason for Consult: Patient needs a tunneled HD catheter for anticipated discharge on Mon. Call Completed: No Consult to Computer Network Support Specialist [CONS] Routine Reason for SW Consult: HD chair time 04/24/18 16:27 Consult to Computer Network Support Specialist [CONS] Routine Reason for SW Consult: Patient changing from CAPD to HD and needs a dialysis chair. 04/26/18 09:00 Consult to Dialysis [CONS] ONCE Discharging clinician: Mushtaq Mendes - Constitutional Vitals: Temp Pulse Resp BP Pulse Ox 98.2 F 68 18 94/52 96 04/26/18 08:25 04/26/18 07:40 04/26/18 08:25 04/26/18 10:25 04/26/18 07:40 Exam: Vitals: Reviewed General: Obese white female in standard Clarke's position with notable respiratory discomfort and audible wheezes. Skin: Warm and supple. HEENT: Moist mucous membranes. No conjunctivae pallor. Neck: No lymphadenopathy. No JVD. Chest: Diminished thoracic expansion with diffuse wheezes, rhonchi and rales. Heart: Normal S1 & S2; rhythmic. Abdomen: Very distended but not tense, no focal areas of tenderness or peritoneal reaction elicited. Extremities: 2+ pitting edema of lower extremities. Neurological: Awake, alert and oriented to person, place and time. No focal deficits. Psych: Affect appropriate. - Patient Status Disposition: Home Health Service Condition: Undetermined - Discharge Instructions Instructions: Hemodialysis (DC), Dialysis Diet (DC), End-Stage Kidney Disease ( DC) Follow Up With: Andrea Sy DO [Partnered Physician] - 05/08/18 9:10 am (surgery follow-up) Jose Alejandro Mcnulty MD [Non-Partnered Physician] - 05/02/18 11:00 am (Please follow up as schedule...) NONE,PCP [Primary Care Provider] - Additional Instructions: #1 may shower, no tub bath for 2 weeks #2 wash incisions with soap and water and pat dry daily #3 no lifting, pushing, pulling more than 20 pounds for the next 2 weeks #4 no driving until off narcotics for 24 hours and able to safely react in the car #5 may climb stairs
[2018-04-26 12:27] VITALS: BP 101/64
== END 2018-04-26 13:41 | disposition home health service (06) | DRG 907 ==
LOC: 2ANU 18:59 → EMEROOARM 18:59 → 2ANU 22:25 → SUATTDRO 04-20 00:41
PROVIDERS: ADMIT Family Medicine; ATTEND Internal Medicine
PROC: IRPERMA (2018-04-25 12:00)

== ENCOUNTER 2021-10-05 14:39 | Observation (INO) ==
[2021-10-05 14:51] VITALS: TEMP 81
[2021-10-05 15:17] LABS: Basophils % 0.2 %; Eosinophils # 0.2 K/mcL (0.0-0.6); Eosinophils % 1.2 %; Hematocrit 32.2 % (35.3-44.9); Hemoglobin 9.6 g/dL (11.5-15.4); Immature Granulocytes % 3.1 % (0-4); Lymphocytes # 0.5 K/mcL (0.6-4.6); Lymphocytes % 2.5 %; Mean Corpuscular HGB Conc 29.8 g/dL (31.6-35.5); Mean Corpuscular Hemoglobin 26.1 pg (28.0-33.3); Mean Corpuscular Volume 87.5 fL (83.0-100.0); Mean Platelet Volume 11.3 fL (9.4-12.4); Monocytes # 0.4 K/mcL (0.0-1.3); Neutrophils # 17.8 K/mcL (1.6-8.9); Nucleated Red Blood Cells 0.4 /100 WBC (0); Platelet Count 204 K/mcL (140-400); Red Blood Count 3.68 M/mcL (3.82-4.97); Red Cell Distribution Width 19.6 % (11.5-14.5); White Blood Count 19.5 K/mcL (4.3-11.1)
[2021-10-05 15:37] VITALS: O2SAT 100
[2021-10-05] MEDS ORDERED: Atropine Sulfate 1% 40 DROP/2 ML BOTTLE SL PRN (15:55)
[2021-10-05] MEDS ORDERED: *HR* LORazepam 2 MG/ML VIAL IVP PRN ×2 (15:55→16:05)
[2021-10-05] MEDS ORDERED: Naloxone 0.4 MG/ML INJ IVP PRN (15:55)
[2021-10-05] MEDS ORDERED: Scopolamine Patch 1.5 MG PATCH.TD72 TD SCH (16:00)
[2021-10-05 16:01] LABS: Alanine Aminotransferase 14 Units/L (7-52); Albumin 2.9 g/dL (3.5-5.7); Albumin/Globulin Ratio 0.9 (1.1-2.2); Alkaline Phosphatase 89 Units/L (34-104); Aspartate Amino Transferase 12 Units/L (13-39); Bilirubin,Total 0.5 mg/dL (0.3-1.0); Blood Urea Nitrogen > 130 mg/dL (8-23); Calcium 8.3 mg/dL (8.6-10.3); Carbon Dioxide 10 mEq/L (23-29); Chloride 110 mEq/L (98-107); Globulin 3.1 g/dL (2.4-3.5); Glucose 160 mg/dL (70-105); Potassium 6.9 mEq/L (3.5-5.1); Sodium 142 mEq/L (136-145); eGFR For African Americans 2 (> 60); eGFR For Non-African Americans 2 (> 60)
[2021-10-05 16:08] LABS: Troponin I 0.12 ng/mL (< 0.04)
[2021-10-05] MEDS: Morphine Sulfate 2 MG/ML SYRINGE IVP PRN ×6 (17:12→23:43)
[2021-10-05 19:28] VITALS: BP 102/71
[2021-10-05 20:11] VITALS: PULSE 95
[2021-10-06] MEDS: Morphine Sulfate 2 MG/ML SYRINGE IVP PRN ×3 (00:50→02:55)
== END 2021-10-06 09:10 | disposition expired ==
LOC: 2ANU 14:39 → EMEROOARM 14:39 → SUATTDRO 18:49 → 2ANU 19:48
PROVIDERS: ADMIT Student in an Organized Health Care Education/Training Program; ATTEND Internal Medicine